=== PATIENT | male | born 1935 | race Caucasian/White ===

== ENCOUNTER 2020-04-06 12:07 | Outpatient (CLI) | payer MEDICARE, OTHER ==
[~2020-04-06 12:07] MED LIST: Magnevist 469MG/ML 20 ML VIAL ONE
--- NOTE | 2020-04-06 13:16 | RAD ---
EXAM: XR Lumbar Spine Min 4 View PROVIDED CLINICAL HISTORY: Low back pain, sciatica. COMPARISON: None FINDINGS: There are 5 nonrib-bearing lumbar-type vertebral bodies. Right convex scoliosis lumbar spine is prese nt. There is significant narrowing of the intervertebral disc spaces at the L3-4 and L4-5 levels and to a lesser extent the L5-S1 level. Multilevel osteophytes are present primarily involving the lo wer lumbar spine. Facet hypertrophic changes are seen in the lower lumbar spine. Grade 1 anterolisthesis of L3 on L4 is seen on flexion which mostly corrects on extension. There is trace gra de 1 anterolisthesis of L4 on L5 on flexion which does correct with extension. There is slight grade 1 anterolisthesis of L5 on S1, but this level is not well evaluated due to overlying osseous st ructures and the degenerative changes. There does not appear to be significant change in the degree of listhesis between flexion and extension views. No obvious fracture is appreciated. Vascular calcic is seen in the abdominal aorta and iliac arteries. IMPRESSION: Multilevel degenerative changes greatest involving the lower lumbar spine with grade 1 anterolisthesi s of L3 on L4, L4 on L5, and L5 on S1 with improvement in the degree of anterolisthesis between flexion and extension.
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
== END 2020-04-06 12:08 | disposition home or self-care (01) ==
LOC: BICMRI 12:07
PROVIDERS: ATTEND Surgery
DX: M54.40 Lumbago with sciatica, unspecified side (principal); M47.816 Spondylosis without myelopathy or radiculopathy, lumbar region; M43.16 Spondylolisthesis, lumbar region; M43.17 Spondylolisthesis, lumbosacral region; M48.061 Spinal stenosis, lumbar region without neurogenic claudication; M48.07 Spinal stenosis, lumbosacral region
CPT/HCPCS: 72110; 72158; 82565

== ENCOUNTER 2021-06-06 05:50 | Day surgery (SDC) | payer MEDICARE, OTHER ==
[2021-06-05 09:35] VITALS: BMI 26.6
[2021-06-06 07:58] LABS: Cardiac Risk 2.7 (Less than 4.5)
[2021-06-06] MEDS ORDERED: Lidocaine 1% (PF) 30 ML VIAL ONE (08:08)
[2021-06-06] MEDS ORDERED: Midazolam HCl 2 mg/2 ml Vial ONE (08:10)
[2021-06-06] MEDS ORDERED: Fentanyl 100 MCG/2 ML VIAL ONE (08:10)
[2021-06-06] MEDS ORDERED: hydrALAZINE 20 MG/ML VIAL ONE (08:36)
[2021-06-06] MEDS ORDERED: Nitroglycerin 2% Ointment 1 INCH/1 GM Packet ONE (08:43)
[2021-06-06] MEDS ORDERED: Nitroglycerin 4.9 GM Bottle ONE (08:51)
== END 2021-06-06 15:35 | disposition home or self-care (01) ==
LOC: CCL 05:50
PROVIDERS: ATTEND Internal Medicine Cardiovascular Disease
PROC: 4A023N7 Measurement of Cardiac Sampling and Pressure, Left Heart, Percutaneous Approach (ICD-10-PCS; principal; 2021-06-06)
PROC: B2111ZZ Fluoroscopy of Multiple Coronary Arteries using Low Osmolar Contrast (ICD-10-PCS; 2021-06-06)
DX: I25.119 Atherosclerotic heart disease of native coronary artery with unspecified angina pectoris (principal); I10 Essential (primary) hypertension; E78.2 Mixed hyperlipidemia; E78.00 Pure hypercholesterolemia, unspecified; N40.0 Benign prostatic hyperplasia without lower urinary tract symptoms; K21.9 Gastro-esophageal reflux disease without esophagitis; Z86.16 Personal history of COVID-19; Z86.73 Personal history of transient ischemic attack (TIA), and cerebral infarction without residual deficits; Z79.82 Long term (current) use of aspirin; Z79.899 Other long term (current) drug therapy
CPT/HCPCS: 36415; 80061; 93454; 93458; 99152; J0360; J2001; J2250; J3010

== ENCOUNTER 2021-12-11 08:09 | Observation (INO) | payer MEDICARE, OTHER ==
[2021-12-05 10:12] VITALS: BMI 25.8
[2021-12-11] MEDS ORDERED: Tranexamic Acid 1,000 MG/10 ML VIAL ONE (09:50)
[2021-12-11] MEDS ORDERED: Vancomycin 1 GM/200 ML BAG ONE (09:50)
[2021-12-11] MEDS ORDERED: Sodium Chloride 0.9% 100 ML ONE (09:50)
[2021-12-11] MEDS ORDERED: Fentanyl 100 MCG/2 ML VIAL ONE ×5 (10:05→14:51)
[2021-12-11] MEDS ORDERED: Midazolam HCl 2 mg/2 ml Vial ONE (10:05)
[2021-12-11] MEDS ORDERED: Zolpidem Tartrate 5 MG TAB PO PRN ×2 (11:00→11:15)
[2021-12-11] MEDS ORDERED: HYDROcodone/Acetaminophen 10/325 mg Tablet PO PRN (11:00)
[2021-12-11] MEDS ORDERED: traMADol HCl 50 MG TAB PO PRN (11:00)
[2021-12-11] MEDS ORDERED: Ropivacaine 0.2% 550 ML 550 ML NERVE BLCK SCH (11:00)
[2021-12-11] MEDS ORDERED: Promethazine HCl 25 MG/ML VIAL IM PRN ×2 (11:00→11:15)
[2021-12-11] MEDS ORDERED: Ondansetron PF 4 MG/2 ML Vial IVP PRN ×2 (11:00→11:15)
[2021-12-11] MEDS ORDERED: ceFAZolin 2 GM/Dextrose 50 ML IVPB ONE (11:07)
[2021-12-11] MEDS ORDERED: Bupivacaine PF 0.5% 30 ML VIAL ONE (11:13)
[2021-12-11] MEDS ORDERED: Ondansetron PF 4 MG/2 ML Vial ONE ×2 (11:14→12:17)
[2021-12-11] MEDS ORDERED: Bupivacaine HCl 0.5%/Epinephrine 1:200,000/PF 30 ml Vial ONE (11:14)
[2021-12-11] MEDS ORDERED: ePHEDrine 50 MG/ML VIAL ONE (11:14)
[2021-12-11] MEDS ORDERED: Lidocaine 1% PF 5 ML VIAL ONE (11:14)
[2021-12-11] MEDS ORDERED: PROPOFOL 200 MG/20 ML VIAL ONE (11:14)
[2021-12-11] MEDS ORDERED: PHENYLEPHRINE-NS 100 MCG/ML 10 ML SYRINGE ONE (11:14)
[2021-12-11] MEDS ORDERED: Acetaminophen 325 MG TAB PO PRN (11:15)
[2021-12-11] MEDS ORDERED: diphenhydrAMINE 25 MG CAP PO PRN (11:15)
[2021-12-11] MEDS ORDERED: Nitroglycerin 0.4 MG TAB (25 Tab Bottle) SL PRN (11:17)
[2021-12-11] MEDS ORDERED: Cyanocobalamin 1000 MCG/ML VIAL IM SCH (11:30)
[2021-12-11] MEDS ORDERED: Ketorolac Tromethamine 30 MG/ML VIAL IVP SCH (12:00)
[2021-12-11] MEDS: Fentanyl 100 MCG/2 ML VIAL IV PRN (15:26)
[2021-12-11] MEDS: Sodium Chloride 0.9% 1,000 ML IV SCH ×2 (17:30→22:11)
[2021-12-11] MEDS ORDERED: ceFAZolin 2 GM/Dextrose 50 ML 2 GM in Premix Bag 1 BAG IVPB SCH (19:00)
[2021-12-11] MEDS: Ferrous Gluconate 324 MG TAB PO SCH (19:44)
[2021-12-11] MEDS: Senokot S 8.6-50 MG TAB PO SCH (19:44)
[2021-12-11] MEDS ORDERED: Cepastat Lozenges 1 LOZ PO PRN (20:05)
[2021-12-11] MEDS ORDERED: CEFAZOLIN 2 GM, Admixture Fee 1 EACH in Sodium Chloride 0.9% 100 ML IVPB SCH (20:30)
[2021-12-11] MEDS: Gabapentin 300 MG CAP PO SCH (20:58)
[2021-12-11] MEDS: Aspirin 325 MG TAB PO SCH (20:58)
[2021-12-11] MEDS: Ketorolac Tromethamine 30 MG/ML VIAL IVP SCH (20:59)
[2021-12-11] MEDS: traMADol HCl 50 MG TAB PO PRN (20:59)
[2021-12-11] MEDS ORDERED: Aspirin 81 mg Enteric Coated Tablet PO SCH (21:00)
[2021-12-11] MEDS: traMADol HCl 50 MG TAB PO SCH (21:00)
[2021-12-12] MEDS ORDERED: CEFAZOLIN 2 GM, Admixture Fee 1 EACH in Sodium Chloride 0.9% 100 ML IVPB SCH (04:00)
[2021-12-12] MEDS: Ketorolac Tromethamine 30 MG/ML VIAL IVP SCH ×2 (05:07→09:48)
[2021-12-12] MEDS: traMADol HCl 50 MG TAB PO PRN ×3 (05:13→19:29)
[2021-12-12 06:27] LABS: Mean Corpuscular HGB CONC 34.5 g/dL (32.0-36.0); Mean Corpuscular Hemoglobin 37.4 pg (27.0-31.0); Mean Platelet Volume 6.7 fL (7.4-10.4); Platelet Count 181 thou/uL (130-400); Red Blood Cell (RBC) Count 2.66 mill/uL (4.70-6.10); White Blood Cell (WBC) Count 6.7 thou/uL (4.8-10.8)
[2021-12-12] MEDS: Senokot S 8.6-50 MG TAB PO SCH ×2 (09:00→21:30)
[2021-12-12] MEDS: PARoxetine 20 MG TAB PO SCH (09:00)
[2021-12-12] MEDS: Multivitamin W/ Minerals 1 TAB PO SCH (10:01)
[2021-12-12] MEDS: Gabapentin 300 MG CAP PO SCH ×2 (10:01→21:31)
[2021-12-12] MEDS: Ferrous Gluconate 324 MG TAB PO SCH ×2 (10:01→22:09)
[2021-12-12] MEDS: Lisinopril 20 MG TAB PO SCH (10:02)
[2021-12-12] MEDS: Hydrochlorothiazide 25 MG TAB PO SCH (10:03)
[2021-12-12] MEDS: HYDROcodone/Acetaminophen 10/325 mg Tablet PO PRN (10:07)
[2021-12-12] MEDS: traMADol HCl 50 MG TAB PO SCH ×2 (10:09→21:31)
[2021-12-12] MEDS: Sodium Chloride 0.9% 1,000 ML IV SCH ×2 (10:12→18:56)
[2021-12-12] MEDS ORDERED: Tamsulosin HCl 0.4 MG CAP PO SCH ×2 (11:45→18:30)
[2021-12-12] MEDS: Fentanyl 100 MCG/2 ML VIAL IV PRN (16:04)
[2021-12-12] MEDS: Aspirin 325 MG TAB PO SCH (21:31)
[2021-12-13] MEDS: Sodium Chloride 0.9% 1,000 ML IV SCH ×2 (03:05→13:57)
[2021-12-13] MEDS: traMADol HCl 50 MG TAB PO PRN (04:19)
[2021-12-13] MEDS: Gabapentin 300 MG CAP PO SCH (09:09)
[2021-12-13] MEDS: Multivitamin W/ Minerals 1 TAB PO SCH (09:10)
[2021-12-13] MEDS: Senokot S 8.6-50 MG TAB PO SCH (09:11)
[2021-12-13] MEDS: Lisinopril 20 MG TAB PO SCH (09:14)
[2021-12-13] MEDS: PARoxetine 20 MG TAB PO SCH (09:15)
[2021-12-13] MEDS: Ferrous Gluconate 324 MG TAB PO SCH (09:16)
[2021-12-13] MEDS: Hydrochlorothiazide 25 MG TAB PO SCH (09:17)
[2021-12-13] MEDS: traMADol HCl 50 MG TAB PO SCH (09:26)
[2021-12-13 11:36] VITALS: BP 123/68; TEMP 99
[2021-12-13] MEDS: HYDROcodone/Acetaminophen 10/325 mg Tablet PO PRN (13:42)
== END 2021-12-13 14:06 | disposition home or self-care (01) ==
LOC: SDC 08:09 → SURG B 14:20
PROVIDERS: ADMIT Orthopaedic Surgery; ATTEND Orthopaedic Surgery
PROC: 0SRC0J9 Replacement of Right Knee Joint with Synthetic Substitute, Cemented, Open Approach (ICD-10-PCS; principal; 2021-12-11)
PROC: 8E0YXBZ Computer Assisted Procedure of Lower Extremity (ICD-10-PCS; 2021-12-11)
PROC: 3E0T3BZ Introduction of Anesthetic Agent into Peripheral Nerves and Plexi, Percutaneous Approach (ICD-10-PCS; 2021-12-11)
DX: M17.11 Unilateral primary osteoarthritis, right knee (principal); I10 Essential (primary) hypertension; Z79.82 Long term (current) use of aspirin; Z79.899 Other long term (current) drug therapy; Z88.6 Allergy status to analgesic agent; Z96.612 Presence of left artificial shoulder joint
CPT/HCPCS: 20985; 27447; 64448; 73560; 85027; 87081; 93005; 97110 ×2; 97116; 97139 ×4; 97530 ×3; A4306; C1713; C1776; 36415; 93010; 96374; 96375; 96376; G0378; J0690; J1885; J2250; J2405; J2704; J2795; J3010; J3370; J3490; J7050; S0020

== ENCOUNTER 2022-08-28 08:11 | Outpatient (CLI) | payer MEDICARE, OTHER ==
[2022-08-28] MEDS ORDERED: Iopamidol-370 76% 500 ML 1 ML ONE (09:39)
== END 2022-08-28 08:12 | disposition home or self-care (01) ==
LOC: BICCT 08:11
PROVIDERS: ATTEND Internal Medicine Hematology & Oncology
DX: C25.2 Malignant neoplasm of tail of pancreas (principal); K86.89 Other specified diseases of pancreas; I82.890 Acute embolism and thrombosis of other specified veins; I70.8 Atherosclerosis of other arteries; K59.00 Constipation, unspecified; N32.89 Other specified disorders of bladder; R18.8 Other ascites; I70.90 Unspecified atherosclerosis; N40.0 Benign prostatic hyperplasia without lower urinary tract symptoms; K76.9 Liver disease, unspecified
CPT/HCPCS: 71260; 74178; Q9967

== ENCOUNTER 2022-08-30 10:31 | Outpatient (CLI) | payer MEDICARE, OTHER ==
[2022-08-30 11:52] LABS: #Monocytes 0.6 10x3/uL (0.0-1.1); %Lymphocytes 4.2 % (18.0-47.0); %Monocytes 5.2 % (0.0-10.0); Hemoglobin 11.1 g/dL (13.5-17.5); Mean Corpuscular HGB CONC 35.7 g/dL (32.0-36.0); Mean Corpuscular Hemoglobin 35.8 pg (27.0-33.0); Mean Corpuscular Volume 100.3 fl (81.2-95.1); Mean Platelet Volume 9.4 fl (7.4-10.4); Platelet Count 309 10x3/uL (150-450); RBC Distribution Width 12.1 % (11.5-14.5); White Blood Cell (WBC) Count 12.2 10x3/uL (3.5-10.5)
[2022-08-30 12:01] LABS: Anion Gap 17 mmol/L (10-20); BUN (Urea Nitrogen) 23 mg/dL (8.4-25.7); Calc. Creatinine Clearance 0 mL/min (70-130); Calcium 9.1 mg/dL (7.8-10.44); Carbon Dioxide 23 mmol/L (23-31); Chloride 97 mmol/L (98-107); Estimated GFR 70; Glucose 104 mg/dL (83-110); Potassium 5.5 mmol/L (3.5-5.1); Sodium 131 mmol/L (136-145)
== END 2022-08-30 10:32 | disposition home or self-care (01) ==
LOC: LABBT 10:31
PROVIDERS: ATTEND Specialist
DX: Z01.818 Encounter for other preprocedural examination (principal); C25.9 Malignant neoplasm of pancreas, unspecified
CPT/HCPCS: 80048; 85025; 93005; 93010

== ENCOUNTER 2022-09-06 09:49 | Day surgery (SDC) | payer MEDICARE, OTHER ==
[2022-09-04 13:59] VITALS: BMI 24.0
[2022-09-06] MEDS ORDERED: Acetaminophen 500 MG TAB ONE (10:14)
[2022-09-06] MEDS ORDERED: Ketorolac Tromethamine 30 MG/ML VIAL ONE (10:55)
[2022-09-06] MEDS ORDERED: Sodium Chloride 0.9% 100 ML ONE (11:07)
[2022-09-06] MEDS ORDERED: CEFAZOLIN 2 GM VIAL ONE (11:07)
[2022-09-06] MEDS ORDERED: Lidocaine 1% (PF) 30 ML VIAL ONE (11:31)
[2022-09-06] MEDS ORDERED: Bupivacaine/Epinephrine 0.25% 30 ML VIAL ONE (11:31)
[2022-09-06] MEDS ORDERED: fentaNYL PF 100 MCG/2 ML SYRINGE ONE (11:36)
[2022-09-06] MEDS ORDERED: PROPOFOL 40 ML ONE (11:38)
[2022-09-06] MEDS ORDERED: PROPOFOL 200 MG/20 ML VIAL ONE (11:58)
[2022-09-06] MEDS ORDERED: ePHEDrine 50 MG/ML VIAL ONE (11:58)
== END 2022-09-06 13:30 | disposition home or self-care (01) ==
LOC: SDC 09:49
PROVIDERS: ATTEND Specialist
PROC: 0JH60WZ Insertion of Totally Implantable Vascular Access Device into Chest Subcutaneous Tissue and Fascia, Open Approach (ICD-10-PCS; principal; 2022-09-06)
PROC: 02HV33Z Insertion of Infusion Device into Superior Vena Cava, Percutaneous Approach (ICD-10-PCS; 2022-09-06)
DX: C25.9 Malignant neoplasm of pancreas, unspecified (principal); I10 Essential (primary) hypertension; M19.90 Unspecified osteoarthritis, unspecified site; E78.00 Pure hypercholesterolemia, unspecified; Z85.46 Personal history of malignant neoplasm of prostate; Z86.73 Personal history of transient ischemic attack (TIA), and cerebral infarction without residual deficits; Z79.82 Long term (current) use of aspirin; Z79.899 Other long term (current) drug therapy; Z88.6 Allergy status to analgesic agent
CPT/HCPCS: 36561; 71045; 71046; C1788; J1642; J1885; J2001; J2704; J3490

== ENCOUNTER 2022-09-09 10:15 | Inpatient (IN) | payer MEDICARE, OTHER ==
[2022-09-09] MEDS ORDERED: Iopamidol-370 76% 500 ML 1 ML ONE (10:45)
[2022-09-09 10:55] LABS: Hemoglobin 9.4 g/dL (14.0-18.0); Mean Corpuscular HGB CONC 34.7 g/dL (32.0-36.0); Mean Corpuscular Hemoglobin 36.8 pg (27.0-31.0); Mean Platelet Volume 7.8 fL (7.4-10.4); Platelet Count 39 thou/uL (130-400); RBC Distribution Width 11.2 % (11.5-14.5); Red Blood Cell (RBC) Count 2.57 mill/uL (4.70-6.10); White Blood Cell (WBC) Count 0.2 thou/uL (4.8-10.8)
[2022-09-09 11:06] LABS: ALT (SGPT) 26 U/L (8-55); AST (SGOT) 29 U/L (5-34); Albumin 3.4 g/dL (3.4-4.8); Alkaline Phosphatase 95 U/L (40-110); Anion Gap 13 mmol/L (10-20); BUN (Urea Nitrogen) 25 mg/dL (8.4-25.7); Bilirubin, Total 1.4 mg/dL (0.2-1.2); Calc. Creatinine Clearance 0 mL/min (70-130); Calcium 8.6 mg/dL (7.8-10.44); Carbon Dioxide 22 mmol/L (23-31); Chloride 95 mmol/L (98-107); Estimated GFR 63; Globulin 2.6 g/dL (2.4-3.5); Glucose 110 mg/dL (83-110); Sodium 126 mmol/L (136-145)
[2022-09-09 11:25] LABS: MDiff Complete? YES; Platelet Morphology Comment Appears Decreased; Polychromasia SLIGHT = 2-3 cells (100X) (0-2/hpf)
[2022-09-09 11:43] LABS: CKMB 4.2 ng/mL (0-6.6)
[2022-09-09] MEDS ORDERED: Cefepime 2 GM VIAL ONE (12:54)
[2022-09-09] MEDS ORDERED: Vancomycin 1.5 GRAM/300 ML BAG 1.5 GM in Premix Bag 1 BAG IVPB SCH (13:15)
[2022-09-09] MEDS ORDERED: Guaifenesin DM 100-10/5 ML UDCUP PO PRN (13:16)
[2022-09-09 14:26] LABS: Troponin I 0.077 ng/mL (< 0.028)
[2022-09-09 16:54] LABS: Troponin I 0.068 ng/mL (< 0.028)
[2022-09-09 20:04] VITALS: BMI 25.2
[2022-09-09] MEDS: HYDROcodone/Acetaminophen 5/325 mg Tablet PO PRN (20:05)
[2022-09-09] MEDS: Sodium Chloride 0.9% 1,000 ML IV SCH (20:05)
[2022-09-09] MEDS: Melatonin 3 MG TAB PO PRN (20:30)
[2022-09-10] MEDS: Cefepime 2 GM in Sodium Chloride 0.9% 100 ML IVPB SCH ×2 (00:38→12:33)
[2022-09-10 01:52] LABS: Legionella Urinary Ag Negative (Negative)
[2022-09-10 02:10] LABS: Strep pneumo Urine Ag NEGATIVE (NEGATIVE)
[2022-09-10] MEDS: HYDROcodone/Acetaminophen 5/325 mg Tablet PO PRN ×3 (04:21→15:07)
[2022-09-10 07:21] LABS: Hemoglobin 7.5 g/dL (14.0-18.0); Mean Corpuscular HGB CONC 33.6 g/dL (32.0-36.0); Mean Corpuscular Hemoglobin 36.1 pg (27.0-31.0); Mean Platelet Volume 8.1 fL (7.4-10.4); Platelet Count 13 thou/uL (130-400); RBC Distribution Width 11.2 % (11.5-14.5); Red Blood Cell (RBC) Count 2.06 mill/uL (4.70-6.10); White Blood Cell (WBC) Count 0.4 thou/uL (4.8-10.8)
[2022-09-10 07:40] LABS: Anion Gap 10 mmol/L (10-20); BUN (Urea Nitrogen) 24 mg/dL (8.4-25.7); Calc. Creatinine Clearance 63 mL/min (70-130); Calcium 7.9 mg/dL (7.8-10.44); Carbon Dioxide 21 mmol/L (23-31); Chloride 97 mmol/L (98-107); Estimated GFR 84; Glucose 108 mg/dL (83-110); Potassium 4.4 mmol/L (3.5-5.1); Sodium 124 mmol/L (136-145)
[2022-09-10 08:24] LABS: MDiff Complete? YES; Macrocytosis MODERATE=16-30 cells (100X) (0-5/hpf); Ovalocytes SLIGHT = 2-5 cells (100X) (0-1/hpf); Platelet Morphology Comment Appears Decreased
[2022-09-10] MEDS: PARoxetine 20 MG TAB PO SCH (08:26)
[2022-09-10] MEDS: Lisinopril 20 MG TAB PO SCH (08:26)
[2022-09-10] MEDS: Sodium Chloride 0.9% 1,000 ML IV SCH ×2 (08:27→17:42)
[2022-09-10] MEDS: Gabapentin 300 MG CAP PO SCH ×2 (08:27→20:49)
[2022-09-10] MEDS: Famotidine 20 MG TAB PO SCH (08:27)
[2022-09-10] MEDS: fentaNYL 50 mcg/hour Patch TD SCH (08:30)
[2022-09-10] MEDS ORDERED: Enoxaparin Sodium 40 MG/0.4 ML SYRINGE SC SCH (09:00)
[2022-09-10] MEDS: Vancomycin 1 GM in Premix Bag 1 BAG IVPB SCH (14:19)
[2022-09-10] MEDS: Pantoprazole 40 MG VIAL IVP SCH (17:42)
[2022-09-11] MEDS: Sodium Chloride 0.9% 1,000 ML IV SCH ×2 (00:23→17:58)
[2022-09-11] MEDS: Cefepime 2 GM in Sodium Chloride 0.9% 100 ML IVPB SCH ×2 (00:23→13:32)
[2022-09-11] MEDS: Pantoprazole 40 MG VIAL IVP SCH ×2 (04:08→17:58)
[2022-09-11 06:16] LABS: Hemoglobin 8.6 g/dL (14.0-18.0); Mean Corpuscular HGB CONC 33.8 g/dL (32.0-36.0); Mean Corpuscular Hemoglobin 36.8 pg (27.0-31.0); Mean Platelet Volume 8.3 fL (7.4-10.4); Platelet Count 44 10x3/uL (130-400); RBC Distribution Width 11.2 % (11.5-14.5); Red Blood Cell (RBC) Count 2.32 mill/uL (4.70-6.10); White Blood Cell (WBC) Count 0.9 10x3/uL (4.8-10.8)
[2022-09-11 06:24] LABS: Anion Gap 12 mmol/L (10-20); BUN (Urea Nitrogen) 22 mg/dL (8.4-25.7); Calc. Creatinine Clearance 63 mL/min (70-130); Calcium 8.2 mg/dL (7.8-10.44); Carbon Dioxide 19 mmol/L (23-31); Chloride 100 mmol/L (98-107); Estimated GFR 84; Glucose 100 mg/dL (83-110); Sodium 127 mmol/L (136-145)
[2022-09-11] MEDS: Lisinopril 20 MG TAB PO SCH (08:41)
[2022-09-11] MEDS: PARoxetine 20 MG TAB PO SCH (08:42)
[2022-09-11] MEDS: Famotidine 20 MG TAB PO SCH (08:43)
[2022-09-11] MEDS: Gabapentin 300 MG CAP PO SCH ×2 (08:44→20:34)
[2022-09-11 08:55] LABS: Band 20 % (5-11); Lymphocytes 60 % (21-51); MDiff Complete? YES; Macrocytosis SLIGHT = 6-15 cells (100X) (0-5/hpf); Neutrophil 20 % (42-75); Platelet Morphology Comment Appears Decreased; Polychromasia SLIGHT = 2-3 cells (100X) (0-2/hpf)
[2022-09-11] MEDS ORDERED: Amiodarone 150 MG in Dextrose 5% in Water 100 ML IVPB SCH (13:00)
[2022-09-11] MEDS ORDERED: Amiodarone 450 MG in Dextrose 5% in Water 250 ML IVPB SCH (13:15)
[2022-09-11 13:54] LABS: Vancomycin, Trough 9.8 ug/mL
[2022-09-11] MEDS: Vancomycin 1 GM in Premix Bag 1 BAG IVPB SCH (14:26)
[2022-09-11] MEDS: Vancomycin HCl 750 MG in Sodium Chloride 0.9% 250 ML 250 ML IVPB SCH (15:01)
[2022-09-11] MEDS: HYDROcodone/Acetaminophen 5/325 mg Tablet PO PRN (19:11)
[2022-09-11] MEDS: Amiodarone 200 MG TAB PO SCH (20:34)
[2022-09-11] MEDS: Melatonin 3 MG TAB PO PRN (20:35)
[2022-09-12] MEDS: Cefepime 2 GM in Sodium Chloride 0.9% 100 ML IVPB SCH ×2 (01:17→12:22)
[2022-09-12] MEDS: Sodium Chloride 0.9% 1,000 ML IV SCH ×2 (03:04→20:15)
[2022-09-12] MEDS: Vancomycin HCl 750 MG in Sodium Chloride 0.9% 250 ML 250 ML IVPB SCH ×2 (03:04→14:32)
[2022-09-12] MEDS: HYDROcodone/Acetaminophen 5/325 mg Tablet PO PRN ×3 (03:12→20:20)
[2022-09-12 05:28] LABS: Hemoglobin 7.6 g/dL (14.0-18.0); Mean Corpuscular HGB CONC 33.6 g/dL (32.0-36.0); Mean Corpuscular Hemoglobin 36.1 pg (27.0-31.0); Mean Platelet Volume 8.8 fL (7.4-10.4); Platelet Count 26 10x3/uL (130-400); RBC Distribution Width 11.4 % (11.5-14.5); Red Blood Cell (RBC) Count 2.11 mill/uL (4.70-6.10); White Blood Cell (WBC) Count 0.7 10x3/uL (4.8-10.8)
[2022-09-12] MEDS: Pantoprazole 40 MG VIAL IVP SCH ×2 (05:38→16:49)
[2022-09-12 05:49] LABS: Anion Gap 12 mmol/L (10-20); BUN (Urea Nitrogen) 23 mg/dL (8.4-25.7); Calc. Creatinine Clearance 66 mL/min (70-130); Carbon Dioxide 17 mmol/L (23-31); Chloride 103 mmol/L (98-107); Estimated GFR 85; Glucose 105 mg/dL (83-110); Potassium 4.1 mmol/L (3.5-5.1); Sodium 128 mmol/L (136-145)
[2022-09-12] MEDS: Famotidine 20 MG TAB PO SCH (08:28)
[2022-09-12] MEDS: Amiodarone 200 MG TAB PO SCH ×2 (08:29→20:19)
[2022-09-12] MEDS: PARoxetine 20 MG TAB PO SCH (08:30)
[2022-09-12] MEDS ORDERED: Promethazine HCl 12.5 MG in Sodium Chloride 0.9% 50 ML IVPB PRN (09:52)
[2022-09-12] MEDS: Lisinopril 20 MG TAB PO SCH (10:04)
[2022-09-12] MEDS: Gabapentin 300 MG CAP PO SCH ×2 (11:29→20:20)
[2022-09-12] MEDS ORDERED: Bisacodyl 10 MG SUPP PR PRN (15:33)
[2022-09-12] MEDS ORDERED: Bisacodyl 10 MG SUPP PR SCH (17:00)
[2022-09-12] MEDS: Docusate 100 MG CAP PO SCH (20:19)
[2022-09-12] MEDS: Melatonin 3 MG TAB PO PRN (20:20)
[2022-09-13] MEDS ORDERED: Digoxin 0.5 MG/2 ML AMP SLOW IVP SCH (01:00)
[2022-09-13] MEDS ORDERED: Sodium Chloride 0.9% 250 ML 250 ML IVPB SCH (02:15)
[2022-09-13] MEDS: Cefepime 2 GM in Sodium Chloride 0.9% 100 ML IVPB SCH ×2 (02:18→13:11)
[2022-09-13 02:48] LABS: Vancomycin, Trough 15.5 ug/mL
[2022-09-13] MEDS: Vancomycin HCl 750 MG in Sodium Chloride 0.9% 250 ML 250 ML IVPB SCH ×2 (03:37→14:51)
[2022-09-13] MEDS: Pantoprazole 40 MG VIAL IVP SCH ×2 (06:05→16:52)
[2022-09-13 08:36] LABS: Hemoglobin 7.9 g/dL (14.0-18.0); Mean Corpuscular HGB CONC 33.6 g/dL (32.0-36.0); Mean Corpuscular Hemoglobin 36.4 pg (27.0-31.0); Mean Platelet Volume 9.4 fL (7.4-10.4); Platelet Count 30 10x3/uL (130-400); RBC Distribution Width 11.4 % (11.5-14.5); Red Blood Cell (RBC) Count 2.18 mill/uL (4.70-6.10); White Blood Cell (WBC) Count 2.1 10x3/uL (4.8-10.8)
[2022-09-13 08:47] LABS: Anion Gap 12 mmol/L (10-20); BUN (Urea Nitrogen) 19 mg/dL (8.4-25.7); Calc. Creatinine Clearance 72 mL/min (70-130); Calcium 7.7 mg/dL (7.8-10.44); Carbon Dioxide 16 mmol/L (23-31); Chloride 106 mmol/L (98-107); Estimated GFR 88; Glucose 92 mg/dL (83-110); Potassium 3.8 mmol/L (3.5-5.1); Sodium 130 mmol/L (136-145)
[2022-09-13] MEDS: Sodium Chloride 0.9% 1,000 ML IV SCH (09:07)
[2022-09-13] MEDS: fentaNYL 50 mcg/hour Patch TD SCH (09:09)
[2022-09-13] MEDS: PARoxetine 20 MG TAB PO SCH (09:12)
[2022-09-13] MEDS: Docusate 100 MG CAP PO SCH ×2 (09:12→23:58)
[2022-09-13] MEDS: Famotidine 20 MG TAB PO SCH ×2 (09:13→23:58)
[2022-09-13] MEDS: Amiodarone 200 MG TAB PO SCH ×3 (09:13→23:58)
[2022-09-13] MEDS: Gabapentin 300 MG CAP PO SCH ×2 (09:13→23:59)
[2022-09-13 09:18] LABS: Band 18 % (5-11); Eosinophils 2 % (0-10); Lymphocytes 26 % (21-51); MDiff Complete? YES; Macrocytosis SLIGHT = 6-15 cells (100X) (0-5/hpf); Monocytes 22 % (0-10); Neutrophil 32 % (42-75); Platelet Morphology Comment Appears Decreased; Polychromasia SLIGHT = 2-3 cells (100X) (0-2/hpf)
[2022-09-13] MEDS ORDERED: Ketorolac Tromethamine 30 MG/ML VIAL IVP SCH (21:00)
[2022-09-14] MEDS: Sodium Chloride 0.9% 1,000 ML IV SCH (01:16)
[2022-09-14] MEDS: Cefepime 2 GM in Sodium Chloride 0.9% 100 ML IVPB SCH ×2 (01:17→13:23)
[2022-09-14] MEDS: Vancomycin HCl 750 MG in Sodium Chloride 0.9% 250 ML 250 ML IVPB SCH ×2 (03:30→15:46)
[2022-09-14] MEDS: Pantoprazole 40 MG VIAL IVP SCH (05:47)
[2022-09-14 06:45] LABS: Anion Gap 9 mmol/L (10-20); BUN (Urea Nitrogen) 15 mg/dL (8.4-25.7); Calc. Creatinine Clearance 74 mL/min (70-130); Calcium 7.8 mg/dL (7.8-10.44); Carbon Dioxide 19 mmol/L (23-31); Chloride 108 mmol/L (98-107); Estimated GFR 88; Glucose 83 mg/dL (83-110); Potassium 3.6 mmol/L (3.5-5.1); Sodium 132 mmol/L (136-145)
[2022-09-14 06:56] LABS: Band 21 % (5-11); Burr Cells SLIGHT = 2-5 cells (100X) (0-1/hpf); Eosinophils 3 % (0-10); Lymphocytes 11 % (21-51); MDiff Complete? YES; Macrocytosis SLIGHT = 6-15 cells (100X) (0-5/hpf); Monocytes 15 % (0-10); Neutrophil 48 % (42-75); Ovalocytes SLIGHT = 2-5 cells (100X) (0-1/hpf); Platelet Morphology Comment Appears Decreased; Reactive Lymphocytes 2 % (0-10)
[2022-09-14 06:57] LABS: Hemoglobin 9.9 g/dL (14.0-18.0); Mean Corpuscular HGB CONC 31.9 g/dL (32.0-36.0); Mean Corpuscular Hemoglobin 34.5 pg (27.0-31.0); Mean Platelet Volume 10.8 fL (7.4-10.4); Platelet Count 32 10x3/uL (130-400); RBC Distribution Width 11.6 % (11.5-14.5); Red Blood Cell (RBC) Count 2.87 mill/uL (4.70-6.10); White Blood Cell (WBC) Count 5.7 10x3/uL (4.8-10.8)
[2022-09-14] MEDS: PARoxetine 20 MG TAB PO SCH (09:26)
[2022-09-14] MEDS: Docusate 100 MG CAP PO SCH ×2 (09:30→22:27)
[2022-09-14] MEDS: Amiodarone 200 MG TAB PO SCH ×3 (09:31→22:27)
[2022-09-14] MEDS: Gabapentin 300 MG CAP PO SCH ×2 (09:31→22:26)
[2022-09-14] MEDS: Famotidine 20 MG TAB PO SCH (12:07)
[2022-09-14] MEDS ORDERED: Ondansetron PF 4 MG/2 ML Vial IVP PRN (13:27)
[2022-09-14 15:13] LABS: Vancomycin, Trough 17.5 ug/mL
[2022-09-14] MEDS: Melatonin 3 MG TAB PO PRN (22:28)
[2022-09-15] MEDS: Cefepime 1 GM in Sodium Chloride 0.9% 100 ML IVPB SCH ×2 (01:29→12:58)
[2022-09-15] MEDS: Sodium Chloride 0.9% 1,000 ML IV SCH ×2 (03:07→17:11)
[2022-09-15] MEDS: Vancomycin HCl 750 MG in Sodium Chloride 0.9% 250 ML 250 ML IVPB SCH ×2 (05:00→15:51)
[2022-09-15 07:26] LABS: Anion Gap 10 mmol/L (10-20); BUN (Urea Nitrogen) 11 mg/dL (8.4-25.7); Calc. Creatinine Clearance 77 mL/min (70-130); Calcium 8.2 mg/dL (7.8-10.44); Carbon Dioxide 21 mmol/L (23-31); Chloride 106 mmol/L (98-107); Estimated GFR 90; Glucose 114 mg/dL (83-110); Potassium 3.6 mmol/L (3.5-5.1); Sodium 133 mmol/L (136-145)
[2022-09-15 09:01] LABS: Band 34 % (5-11); Eosinophils 3 % (0-10); Hemoglobin 9.6 g/dL (14.0-18.0); Lymphocytes 4 % (21-51); MDiff Complete? YES; Mean Platelet Volume 9.1 fL (7.4-10.4); Metamyelocyte 3 % (0-0); Monocytes 4 % (0-10); Neutrophil 50 % (42-75); Nucleated RBC 1 % (0); Platelet Count 89 10x3/uL (130-400); Platelet Morphology Comment Appears Decreased; RBC Distribution Width 11.9 % (11.5-14.5); RBC Morphology Normal; Reactive Lymphocytes 2 % (0-10)
[2022-09-15] MEDS: Amiodarone 200 MG TAB PO SCH ×3 (10:22→21:57)
[2022-09-15] MEDS: Gabapentin 300 MG CAP PO SCH ×2 (10:24→21:56)
[2022-09-15] MEDS: Docusate 100 MG CAP PO SCH ×2 (10:24→21:58)
[2022-09-15] MEDS: PARoxetine 20 MG TAB PO SCH (10:26)
[2022-09-15] MEDS: Melatonin 3 MG TAB PO PRN (21:56)
[2022-09-15] MEDS ORDERED: diphenhydrAMINE 25 MG CAP PO SCH (22:45)
[2022-09-16] MEDS: Cefepime 1 GM in Sodium Chloride 0.9% 100 ML IVPB SCH ×2 (01:40→13:57)
[2022-09-16 03:27] LABS: Carbon Dioxide 19 mmol/L (23-31)
[2022-09-16 03:37] LABS: Band 20 % (5-11); Burr Cells SLIGHT = 2-5 cells (100X) (0-1/hpf); Eosinophils 1 % (0-10); Hemoglobin 8.2 g/dL (14.0-18.0); Large Platelets SLIGHT; Lymphocytes 4 % (21-51); MDiff Complete? YES; Macrocytosis MODERATE=16-30 cells (100X) (0-5/hpf); Mean Corpuscular HGB CONC 33.2 g/dL (32.0-36.0); Mean Corpuscular Hemoglobin 35.6 pg (27.0-31.0); Mean Platelet Volume 8.2 fL (7.4-10.4); Metamyelocyte 1 % (0-0); Monocytes 9 % (0-10); Myelocyte 3 % (0-0); Neutrophil 62 % (42-75); Ovalocytes SLIGHT = 2-5 cells (100X) (0-1/hpf); Platelet Count 111 10x3/uL (130-400); Platelet Morphology Comment Appears Decreased; RBC Distribution Width 11.8 % (11.5-14.5); Red Blood Cell (RBC) Count 2.31 mill/uL (4.70-6.10); White Blood Cell (WBC) Count 26.7 10x3/uL (4.8-10.8)
[2022-09-16 03:40] LABS: Calcium 7.9 mg/dL (7.8-10.44); Chloride 106 mmol/L (98-107); Potassium 3.7 mmol/L (3.5-5.1); Sodium 134 mmol/L (136-145)
[2022-09-16 03:41] LABS: Glucose 113 mg/dL (83-110)
[2022-09-16 03:42] LABS: Anion Gap 10 mmol/L (10-20)
[2022-09-16 03:43] LABS: Vancomycin, Trough 19.4 ug/mL
[2022-09-16 03:44] LABS: Calc. Creatinine Clearance 80 mL/min (70-130); Estimated GFR 90
[2022-09-16 03:45] LABS: BUN (Urea Nitrogen) 8 mg/dL (8.4-25.7)
[2022-09-16] MEDS: Vancomycin HCl 750 MG in Sodium Chloride 0.9% 250 ML 250 ML IVPB SCH ×2 (04:50→16:10)
[2022-09-16] MEDS: Docusate 100 MG CAP PO SCH ×2 (10:15→20:13)
[2022-09-16] MEDS: Amiodarone 200 MG TAB PO SCH ×3 (10:15→20:13)
[2022-09-16] MEDS: fentaNYL 50 mcg/hour Patch TD SCH (10:16)
[2022-09-16] MEDS: PARoxetine 20 MG TAB PO SCH (10:17)
[2022-09-16] MEDS: Gabapentin 300 MG CAP PO SCH ×2 (10:17→20:13)
[2022-09-16] MEDS ORDERED: Mineral Oil ENEMA PR SCH (16:00)
[2022-09-16] MEDS: Melatonin 3 MG TAB PO PRN (20:14)
[2022-09-17] MEDS: Cefepime 1 GM in Sodium Chloride 0.9% 100 ML IVPB SCH (02:56)
[2022-09-17 05:13] LABS: Hemoglobin 8.3 g/dL (14.0-18.0); Mean Corpuscular HGB CONC 33.2 g/dL (32.0-36.0); Mean Corpuscular Hemoglobin 35.5 pg (27.0-31.0); Mean Platelet Volume 8.5 fL (7.4-10.4); Platelet Count 164 10x3/uL (130-400); RBC Distribution Width 12.1 % (11.5-14.5); Red Blood Cell (RBC) Count 2.34 mill/uL (4.70-6.10); White Blood Cell (WBC) Count 18.2 10x3/uL (4.8-10.8)
[2022-09-17 05:25] LABS: Anion Gap 13 mmol/L (10-20); BUN (Urea Nitrogen) 7 mg/dL (8.4-25.7); Calc. Creatinine Clearance 81 mL/min (70-130); Calcium 7.9 mg/dL (7.8-10.44); Carbon Dioxide 20 mmol/L (23-31); Chloride 104 mmol/L (98-107); Estimated GFR 91; Glucose 101 mg/dL (83-110); Potassium 3.6 mmol/L (3.5-5.1); Sodium 133 mmol/L (136-145)
[2022-09-17] MEDS: Vancomycin HCl 750 MG in Sodium Chloride 0.9% 250 ML 250 ML IVPB SCH (05:35)
[2022-09-17 05:46] LABS: Band 13 % (5-11); Hypochromia SLIGHT = 6-15 cells (100X) (0-5/hpf); Lymphocytes 8 % (21-51); Monocytes 20 % (0-10); Neutrophil 59 % (42-75); Platelet Morphology Comment Appears Adequate
[2022-09-17 05:49] LABS: MDiff Complete? YES
[2022-09-17 07:59] VITALS: TEMP 97.9
[2022-09-17] MEDS ORDERED: Amiodarone 200 MG TAB PO SCH (09:00)
[2022-09-17] MEDS: PARoxetine 20 MG TAB PO SCH (10:23)
[2022-09-17] MEDS: Gabapentin 300 MG CAP PO SCH (10:24)
[2022-09-17] MEDS: Docusate 100 MG CAP PO SCH (10:24)
[2022-09-17 10:43] VITALS: BP 142/67
== END 2022-09-17 14:00 | disposition swing bed (61) | DRG 871 ==
LOC: ERS 10:15 → ERHOLD 13:21 → NEURO 16:50 → 2NO 09-16 18:51
PROVIDERS: ADMIT Family Medicine; ATTEND Family Medicine
PROC: 3E03329 Introduction of Other Anti-infective into Peripheral Vein, Percutaneous Approach (ICD-10-PCS; principal; 2022-09-09)
PROC: 6A550Z2 Pheresis of Platelets, Single (ICD-10-PCS; 2022-09-10)
DX: A41.9 Sepsis, unspecified organism (principal); Z66 Do not resuscitate; Z20.822 Contact with and (suspected) exposure to COVID-19; I21.A1 Myocardial infarction type 2; J96.01 Acute respiratory failure with hypoxia; J18.9 Pneumonia, unspecified organism; C25.9 Malignant neoplasm of pancreas, unspecified; E87.1 Hypo-osmolality and hyponatremia; I48.92 Unspecified atrial flutter; G93.49 Other encephalopathy; D61.818 Other pancytopenia; I48.19 Other persistent atrial fibrillation; I10 Essential (primary) hypertension; K59.00 Constipation, unspecified; Z96.612 Presence of left artificial shoulder joint; Z96.611 Presence of right artificial shoulder joint; Z96.653 Presence of artificial knee joint, bilateral; D70.3 Neutropenia due to infection; E86.9 Volume depletion, unspecified; F41.9 Anxiety disorder, unspecified; F32.A Depression, unspecified; N40.0 Benign prostatic hyperplasia without lower urinary tract symptoms; K21.9 Gastro-esophageal reflux disease without esophagitis; E78.5 Hyperlipidemia, unspecified; Y95 Nosocomial condition; G43.909 Migraine, unspecified, not intractable, without status migrainosus; Z98.890 Other specified postprocedural states; Z80.0 Family history of malignant neoplasm of digestive organs; Z86.73 Personal history of transient ischemic attack (TIA), and cerebral infarction without residual deficits; Z87.891 Personal history of nicotine dependence; Z88.6 Allergy status to analgesic agent; Z79.899 Other long term (current) drug therapy; Z79.82 Long term (current) use of aspirin
CPT/HCPCS: 36415; 36430; 70450; 71045; 71275; 74018; 74177; 80048; 80053; 80202; 82274; 82553; 83605; 83735; 83880; 83930; 83935; 84145; 84300; 84443; 84484; 85025; 86140; 86850; 86900; 86901; 87070; 87205; 87449; 87811; 87899; 93005; 96361; 96365; 96366; 96367; C9113; J0692; J1160; J1447; J1956; J2405; J2550; J3370; J3490; J7050; P9035; Q9967; U0003; U0005

== ENCOUNTER 2022-10-04 15:09 | Emergency (ER) | payer MEDICARE, OTHER ==
[2022-10-04 15:48] LABS: Bilirubin Negative (Negative); Blood, Urine Negative (Negative); Clarity Clear (Clear); Glucose, Urine (Dipstick) Normal (Negative); Ketone, Urine Negative (Negative); Leukocyte Negative Leu/uL (Negative); Nitrite Negative (Negative); Protein, Urine (Dipstick) 10 mg/dL (Neg-Trace); Urobilinogen Normal mg/dL (Less than 2); pH, Urine 6.5 (5.0-9.0)
[2022-10-04 16:25] LABS: #Lymphocytes 0.7 thou/uL (1.20-3.40); #Monocytes 0.4 thou/uL (0.11-0.59); #Neutrophils 4.8 thou/uL (1.40-6.50); %Basophils 0.1 % (0.0-1.0); %Eosinophils 0.2 % (0.0-10.0); %Lymphocytes 11.9 % (21.0-51.0); %Monocytes 6.5 % (0.0-10.0); %Neutrophils 81.4 % (42.0-75.0); Hemoglobin 9.9 g/dL (14.0-18.0); Mean Corpuscular HGB CONC 33.8 g/dL (32.0-36.0); Mean Corpuscular Hemoglobin 37.8 pg (27.0-31.0); Mean Platelet Volume 7.5 fL (7.4-10.4); Platelet Count 288 10x3/uL (130-400); RBC Distribution Width 14.8 % (11.5-14.5); Red Blood Cell (RBC) Count 2.61 mill/uL (4.70-6.10); White Blood Cell (WBC) Count 5.8 10x3/uL (4.8-10.8)
[2022-10-04 16:42] LABS: PTT 31.3 sec (22.9-36.1); Prothrombin Time 13.9 sec (12.0-14.7)
[2022-10-04 17:11] LABS: Albumin 3.6 g/dL (3.4-4.8)
[2022-10-04 17:12] LABS: Calcium 8.3 mg/dL (7.8-10.44); Chloride 99 mmol/L (98-107); Potassium 4.6 mmol/L (3.5-5.1); Sodium 129 mmol/L (136-145)
[2022-10-04 17:13] LABS: Globulin 2.4 g/dL (2.4-3.5); Glucose 118 mg/dL (83-110)
[2022-10-04 17:15] LABS: Anion Gap 14 mmol/L (10-20); Bilirubin, Total 0.5 mg/dL (0.2-1.2); Carbon Dioxide 21 mmol/L (23-31)
[2022-10-04 17:16] LABS: Alkaline Phosphatase 88 U/L (40-110); Calc. Creatinine Clearance 0 mL/min (70-130); Estimated GFR 87
[2022-10-04 17:17] LABS: BUN (Urea Nitrogen) 16 mg/dL (8.4-25.7)
[2022-10-04 17:18] LABS: AST (SGOT) 25 U/L (5-34)
[2022-10-04 17:19] LABS: ALT (SGPT) 15 U/L (8-55)
== END 2022-10-04 18:08 | disposition home or self-care (01) ==
LOC: ERS 15:09
DX: R31.9 Hematuria, unspecified (principal); E78.5 Hyperlipidemia, unspecified; I10 Essential (primary) hypertension; Z86.73 Personal history of transient ischemic attack (TIA), and cerebral infarction without residual deficits
CPT/HCPCS: 36415; 80053; 81003; 85025; 85610; 85730; 94760; 99283

== ENCOUNTER 2022-11-23 06:46 | Observation (INO) | payer MEDICARE, OTHER ==
[2022-11-23] MEDS ORDERED: Aspirin Chewable 81 MG TAB ONE (07:13)
[2022-11-23 07:58] LABS: Mean Corpuscular HGB CONC 33.6 g/dL (32.0-36.0); Mean Corpuscular Hemoglobin 38.8 pg (27.0-31.0); RBC Distribution Width 16.3 % (11.5-14.5); Red Blood Cell (RBC) Count 2.59 mill/uL (4.70-6.10)
[2022-11-23 08:08] LABS: ALT (SGPT) 13 U/L (8-55); AST (SGOT) 20 U/L (5-34); Albumin 3.7 g/dL (3.4-4.8); Alkaline Phosphatase 149 U/L (40-110); Anion Gap 14 mmol/L (10-20); BUN (Urea Nitrogen) 7 mg/dL (8.4-25.7); Bilirubin, Total 0.4 mg/dL (0.2-1.2); Calc. Creatinine Clearance 0 mL/min (70-130); Calcium 8.8 mg/dL (7.8-10.44); Carbon Dioxide 24 mmol/L (23-31); Chloride 99 mmol/L (98-107); Estimated GFR 85; Globulin 2.2 g/dL (2.4-3.5); Glucose 116 mg/dL (83-110); Potassium 4.1 mmol/L (3.5-5.1); Protein, Total 5.9 g/dL (5.8-8.1); Sodium 133 mmol/L (136-145)
[2022-11-23 08:28] LABS: Band 2 % (5-11); Eosinophils 1 % (0-10); Lymphocytes 3 % (21-51); MDiff Complete? YES; Mean Platelet Volume 8.1 fL (7.4-10.4); Monocytes 5 % (0-10); Neutrophil 88 % (42-75); Platelet Count 130 10x3/uL (130-400); Platelet Morphology Comment Appears Adequate; Vacuoles SLIGHT; White Blood Cell (WBC) Count 22.9 10x3/uL (4.8-10.8)
[2022-11-23] MEDS ORDERED: Cefepime 2 GM VIAL ONE (08:36)
[2022-11-23] MEDS ORDERED: Vancomycin 1 GM/200 ML (FROZEN) BAG ONE (09:13)
[2022-11-23 09:50] LABS: Bilirubin Negative (Negative); Blood, Urine Negative (Negative); Clarity Clear (Clear); Glucose, Urine (Dipstick) Normal (Negative); Ketone, Urine Negative (Negative); Leukocyte Negative Leu/uL (Negative); Nitrite Negative (Negative); Protein, Urine (Dipstick) Negative (Neg-Trace); Specific Gravity, Urine 1.026 (1.002-1.036); Urobilinogen Normal mg/dL (Less than 2); pH, Urine 7.5 (5.0-9.0)
[2022-11-23 09:50] LABS: SARS-CoV-2 NAA Rapid Test Not Detected (NotDetected)
[2022-11-23] MEDS ORDERED: Iopamidol-370 76% 500 ML 1 ML ONE (10:09)
[2022-11-23] MEDS ORDERED: Acetaminophen 325 MG TAB PO PRN (10:14)
[2022-11-23] MEDS ORDERED: Melatonin 3 MG TAB PO PRN (10:14)
[2022-11-23] MEDS ORDERED: HYDROcodone/Acetaminophen 5/325 mg Tablet PO PRN (10:14)
[2022-11-23] MEDS ORDERED: Ondansetron PF 4 MG/2 ML Vial IVP PRN (10:14)
[2022-11-23] MEDS ORDERED: Guaifenesin DM 100-10/5 ML UDCUP PO PRN (10:14)
[2022-11-23] MEDS ORDERED: Levofloxacin 750 mg/D5W 500 MG in Premix Bag 1 BAG IVPB SCH (10:15)
[2022-11-23 11:13] LABS: Troponin I Less than 0.010 ng/mL (< 0.028)
[2022-11-23] MEDS ORDERED: fentaNYL 50 mcg/hour Patch TD SCH (12:00)
[2022-11-23 12:10] VITALS: BMI 22.7
[2022-11-23] MEDS: Ipratropium/Albuterol 3 ML NEB NEB SCH ×2 (14:22→18:46)
[2022-11-23 14:45] LABS: Troponin I 0.014 ng/mL (< 0.028)
[2022-11-23] MEDS ORDERED: FLU VACC QS2022-23(65YR UP)/PF 240 MCG/0.7 ML SYRINGE IM ONE (15:00)
[2022-11-23] MEDS: Gabapentin 300 MG CAP PO SCH (20:02)
[2022-11-23] MEDS: Senokot S 8.6-50 MG TAB PO SCH (20:02)
[2022-11-24] MEDS: Ipratropium/Albuterol 3 ML NEB NEB SCH ×2 (00:15→06:27)
[2022-11-24 05:33] LABS: Anion Gap 13 mmol/L (10-20); BUN (Urea Nitrogen) 7 mg/dL (8.4-25.7); Calc. Creatinine Clearance 64 mL/min (70-130); Calcium 8.6 mg/dL (7.8-10.44); Carbon Dioxide 23 mmol/L (23-31); Chloride 100 mmol/L (98-107); Estimated GFR 87; Glucose 99 mg/dL (83-110); Potassium 3.7 mmol/L (3.5-5.1); Sodium 132 mmol/L (136-145)
[2022-11-24 06:28] LABS: Hemoglobin 8.1 g/dL (14.0-18.0); Mean Corpuscular Hemoglobin 39.4 pg (27.0-31.0); Mean Platelet Volume 8.3 fL (7.4-10.4); Platelet Count 92 10x3/uL (130-400); RBC Distribution Width 16.4 % (11.5-14.5); Red Blood Cell (RBC) Count 2.06 mill/uL (4.70-6.10); White Blood Cell (WBC) Count 23.6 10x3/uL (4.8-10.8)
[2022-11-24 06:29] LABS: Anisocytosis SLIGHT = 6-15 cells (100X) (0-5/hpf); Band 6 % (5-11); Eosinophils 1 % (0-10); Lymphocytes 4 % (21-51); MDiff Complete? YES; Macrocytosis MODERATE=16-30 cells (100X) (0-5/hpf); Monocytes 9 % (0-10); Myelocyte 1 % (0-0); Neutrophil 79 % (42-75); Ovalocytes MODERATE= 6-15 cells (100X) (0-1/hpf); Platelet Morphology Comment Appears Decreased
[2022-11-24 08:20] VITALS: BP 119/59; TEMP 98
[2022-11-24] MEDS ORDERED: PARoxetine 20 MG TAB PO SCH (09:00)
[2022-11-24] MEDS ORDERED: fentaNYL 50 mcg/hour Patch TD SCH (09:00)
[2022-11-24] MEDS ORDERED: Non-Formulary Item 1 EACH (Paroxetine Hcl [Paxil] 30 MG Tablet) PO SCH ×2 (09:00)
[2022-11-24] MEDS ORDERED: Amiodarone 200 MG TAB PO SCH (09:00)
[2022-11-24] MEDS ORDERED: Polyethylene Glycol 3350 17 GM Packet PO SCH (09:00)
[2022-11-24] MEDS: Senokot S 8.6-50 MG TAB PO SCH (09:31)
[2022-11-24] MEDS: Gabapentin 300 MG CAP PO SCH (09:31)
== END 2022-11-24 11:29 | disposition home or self-care (01) ==
LOC: ERS 06:46 → 2SW 09:33
PROVIDERS: ADMIT Internal Medicine; ATTEND Internal Medicine
DX: J18.9 Pneumonia, unspecified organism (principal); R07.81 Pleurodynia; I10 Essential (primary) hypertension; I48.19 Other persistent atrial fibrillation; C25.9 Malignant neoplasm of pancreas, unspecified; I25.10 Atherosclerotic heart disease of native coronary artery without angina pectoris; K21.9 Gastro-esophageal reflux disease without esophagitis; E78.5 Hyperlipidemia, unspecified; Z66 Do not resuscitate; Z79.899 Other long term (current) drug therapy; Z20.822 Contact with and (suspected) exposure to COVID-19
CPT/HCPCS: 0240U; 71275; 80048; 80053; 81003; 83880; 84484 ×2; 85025 ×2; 87040; 87070; 87086; 87205 ×2; 93005; 94640 ×3; 96372; 96374; 99285; G0378 ×3; J3370; 36415; J0692; J1650; J1956; J7620; Q9967

== ENCOUNTER 2022-11-25 07:46 | Outpatient (CLI) | payer MEDICARE, OTHER | END 2022-11-25 07:47 | disposition home or self-care (01) | LOC: BICCT 07:46 | PROVIDERS: ATTEND Internal Medicine Hematology & Oncology | DX: C25.2 Malignant neoplasm of tail of pancreas (principal) | CPT/HCPCS: 71260; 74177 ==

== ENCOUNTER 2022-11-28 09:51 | Inpatient (IN) | payer MEDICARE, OTHER ==
[2022-11-28 10:50] LABS: Hemoglobin 9.3 g/dL (14.0-18.0); Mean Corpuscular HGB CONC 32.6 g/dL (32.0-36.0); Mean Corpuscular Hemoglobin 37.9 pg (27.0-31.0); Platelet Count 257 10x3/uL (130-400); RBC Distribution Width 16.4 % (11.5-14.5); Red Blood Cell (RBC) Count 2.44 mill/uL (4.70-6.10); White Blood Cell (WBC) Count 33.6 10x3/uL (4.8-10.8)
[2022-11-28] MEDS ORDERED: Azithromycin 500 MG VIAL ONE (10:54)
[2022-11-28] MEDS ORDERED: Cefepime 2 GM VIAL ONE (10:54)
[2022-11-28 11:20] LABS: Anisocytosis SLIGHT = 6-15 cells (100X) (0-5/hpf); Band 1 % (5-11); Lymphocytes 3 % (21-51); MDiff Complete? YES; Monocytes 3 % (0-10); Neutrophil 93 % (42-75); Ovalocytes SLIGHT = 2-5 cells (100X) (0-1/hpf); Platelet Morphology Comment Appears Adequate; Polychromasia SLIGHT = 2-3 cells (100X) (0-2/hpf)
[2022-11-28 11:26] LABS: ALT (SGPT) 12 U/L (8-55); AST (SGOT) 19 U/L (5-34); Albumin 3.2 g/dL (3.4-4.8); Alkaline Phosphatase 164 U/L (40-110); Anion Gap 9 mmol/L (10-20); BUN (Urea Nitrogen) 8 mg/dL (8.4-25.7); Bilirubin, Total 0.4 mg/dL (0.2-1.2); Calc. Creatinine Clearance 0 mL/min (70-130); Calcium 8.5 mg/dL (7.8-10.44); Carbon Dioxide 26 mmol/L (23-31); Chloride 99 mmol/L (98-107); Estimated GFR 82; Globulin 2.6 g/dL (2.4-3.5); Glucose 229 mg/dL (83-110); Potassium 4.3 mmol/L (3.5-5.1); Protein, Total 5.8 g/dL (5.8-8.1); Sodium 130 mmol/L (136-145)
[2022-11-28] MEDS ORDERED: Senokot S 8.6-50 MG TAB PO PRN (12:25)
[2022-11-28] MEDS ORDERED: Ondansetron PF 4 MG/2 ML Vial IVP PRN (12:25)
[2022-11-28] MEDS ORDERED: Guaifenesin DM 100-10/5 ML UDCUP PO PRN (12:25)
[2022-11-28] MEDS ORDERED: Acetaminophen 325 MG TAB PO PRN (12:25)
[2022-11-28] MEDS ORDERED: Polyethylene Glycol 3350 17 GM Packet PO PRN (12:25)
[2022-11-28] MEDS: fentaNYL 50 mcg/hour Patch TD SCH (14:36)
[2022-11-28] MEDS: Sodium Chloride 0.9% 1,000 ML IV SCH (14:38)
[2022-11-28] MEDS: Gabapentin 300 MG CAP PO SCH ×2 (14:38→20:09)
[2022-11-28 15:31] VITALS: BMI 22.6
[2022-11-28 15:49] LABS: SARS-CoV-2 NAA Rapid Test Not Detected (NotDetected)
[2022-11-28] MEDS ORDERED: Vancomycin 1.5 GRAM/300 ML BAG 1.5 GM in Premix Bag 1 BAG IVPB SCH (19:30)
[2022-11-28] MEDS: Ipratropium/Albuterol 3 ML NEB NEB SCH (19:35)
[2022-11-28] MEDS: Cefepime 1 GM in Sodium Chloride 0.9% 100 ML IVPB SCH (20:08)
[2022-11-29] MEDS: Ipratropium/Albuterol 3 ML NEB NEB SCH ×4 (00:25→19:04)
[2022-11-29 05:35] LABS: #Eosinphils 0.3 thou/uL (0.0-0.7); #Lymphocytes 1.2 thou/uL (1.20-3.40); #Monocytes 1.2 thou/uL (0.11-0.59); #Neutrophils 14.4 thou/uL (1.40-6.50); %Basophils 0.2 % (0.0-1.0); %Eosinophils 1.7 % (0.0-10.0); %Monocytes 7.2 % (0.0-10.0); %Neutrophils 83.9 % (42.0-75.0); Mean Corpuscular HGB CONC 32.9 g/dL (32.0-36.0); Mean Corpuscular Hemoglobin 38.1 pg (27.0-31.0); Mean Platelet Volume 6.9 fL (7.4-10.4); Platelet Count 206 10x3/uL (130-400); RBC Distribution Width 16.1 % (11.5-14.5); Red Blood Cell (RBC) Count 2.11 mill/uL (4.70-6.10); White Blood Cell (WBC) Count 17.2 10x3/uL (4.8-10.8)
[2022-11-29 05:57] LABS: ALT (SGPT) 10 U/L (8-55); AST (SGOT) 13 U/L (5-34); Albumin 2.7 g/dL (3.4-4.8); Alkaline Phosphatase 97 U/L (40-110); Anion Gap 11 mmol/L (10-20); BUN (Urea Nitrogen) 10 mg/dL (8.4-25.7); Bilirubin, Total 0.4 mg/dL (0.2-1.2); Calc. Creatinine Clearance 72 mL/min (70-130); Calcium 8.2 mg/dL (7.8-10.44); Carbon Dioxide 23 mmol/L (23-31); Chloride 102 mmol/L (98-107); Estimated GFR 89; Globulin 2.3 g/dL (2.4-3.5); Glucose 96 mg/dL (83-110); Potassium 3.9 mmol/L (3.5-5.1); Sodium 132 mmol/L (136-145)
[2022-11-29] MEDS: PARoxetine 20 MG TAB PO SCH (09:52)
[2022-11-29] MEDS: Amiodarone 200 MG TAB PO SCH (09:52)
[2022-11-29] MEDS: Cefepime 1 GM in Sodium Chloride 0.9% 100 ML IVPB SCH ×2 (09:53→21:56)
[2022-11-29] MEDS: Gabapentin 300 MG CAP PO SCH ×3 (09:53→20:48)
[2022-11-29] MEDS: Sodium Chloride 0.9% 1,000 ML IV SCH ×2 (09:54→21:56)
[2022-11-29] MEDS: Azithromycin 500 MG in Sodium Chloride 0.9% 250 ML 250 ML IVPB SCH (12:04)
[2022-11-29] MEDS: Mometasone 200 MCG/Formoterol 5 MCG 120 PUFF INHALER INH SCH (19:05)
[2022-11-29] MEDS: Vancomycin 1 GM in Premix Bag 1 BAG IVPB SCH (20:43)
[2022-11-30] MEDS: Ipratropium/Albuterol 3 ML NEB NEB SCH ×4 (00:30→18:31)
[2022-11-30] MEDS: Cefepime 1 GM in Sodium Chloride 0.9% 100 ML IVPB SCH (08:37)
[2022-11-30] MEDS: Multivitamin W/ Minerals 1 TAB PO SCH (08:39)
[2022-11-30] MEDS: Gabapentin 300 MG CAP PO SCH ×3 (08:39→20:21)
[2022-11-30] MEDS: Amiodarone 200 MG TAB PO SCH (08:39)
[2022-11-30] MEDS: PARoxetine 20 MG TAB PO SCH (08:40)
[2022-11-30] MEDS ORDERED: Polyethylene Glycol 3350 17 GM Packet PO PRN (09:13)
[2022-11-30] MEDS ORDERED: Polyethylene Glycol 3350 17 GM Packet PO SCH (09:15)
[2022-11-30] MEDS: Mometasone 200 MCG/Formoterol 5 MCG 120 PUFF INHALER INH SCH ×2 (10:15→18:34)
[2022-11-30] MEDS: Tamsulosin HCl 0.4 MG CAP PO SCH (10:28)
[2022-11-30] MEDS: Azithromycin 500 MG in Sodium Chloride 0.9% 250 ML 250 ML IVPB SCH (11:14)
[2022-11-30] MEDS: Senokot S 8.6-50 MG TAB PO SCH (20:13)
[2022-11-30] MEDS: Fluticasone Propionate Nasal Spray 16 gm Bottle NASAL SCH (20:22)
[2022-11-30] MEDS: Cefepime 2 GM in Sodium Chloride 0.9% 100 ML IVPB SCH (20:35)
[2022-11-30] MEDS ORDERED: Melatonin 3 MG TAB PO SCH (21:00)
[2022-11-30] MEDS: Vancomycin 1 GM in Premix Bag 1 BAG IVPB SCH (21:26)
[2022-11-30] MEDS ORDERED: QUEtiapine 25 MG TAB PO SCH (22:30)
[2022-12-01] MEDS: Ipratropium/Albuterol 3 ML NEB NEB SCH ×4 (00:11→19:10)
[2022-12-01 05:32] LABS: #Eosinphils 0.3 thou/uL (0.0-0.7); #Lymphocytes 1.2 thou/uL (1.20-3.40); #Monocytes 1.1 thou/uL (0.11-0.59); #Neutrophils 9.3 thou/uL (1.40-6.50); %Basophils 0.2 % (0.0-1.0); %Eosinophils 2.5 % (0.0-10.0); %Lymphocytes 9.8 % (21.0-51.0); %Monocytes 9.6 % (0.0-10.0); %Neutrophils 77.9 % (42.0-75.0); Hemoglobin 7.6 g/dL (14.0-18.0); Mean Corpuscular HGB CONC 32.5 g/dL (32.0-36.0); Mean Platelet Volume 8.3 fL (7.4-10.4); Platelet Count 166 10x3/uL (130-400); RBC Distribution Width 15.9 % (11.5-14.5); Red Blood Cell (RBC) Count 2.01 mill/uL (4.70-6.10); White Blood Cell (WBC) Count 11.9 10x3/uL (4.8-10.8)
[2022-12-01 05:58] LABS: Anion Gap 15 mmol/L (10-20); BUN (Urea Nitrogen) 10 mg/dL (8.4-25.7); Calc. Creatinine Clearance 81 mL/min (70-130); Carbon Dioxide 18 mmol/L (23-31); Chloride 102 mmol/L (98-107); Estimated GFR 92; Glucose 118 mg/dL (83-110); Potassium 4.6 mmol/L (3.5-5.1); Sodium 130 mmol/L (136-145)
[2022-12-01] MEDS: Mometasone 200 MCG/Formoterol 5 MCG 120 PUFF INHALER INH SCH ×2 (07:09→19:13)
[2022-12-01] MEDS: Vancomycin HCl 750 MG in Sodium Chloride 0.9% 250 ML 250 ML IVPB SCH ×2 (08:25→20:15)
[2022-12-01] MEDS: Gabapentin 300 MG CAP PO SCH ×2 (08:37→15:23)
[2022-12-01] MEDS: Amiodarone 200 MG TAB PO SCH (08:38)
[2022-12-01] MEDS: Tamsulosin HCl 0.4 MG CAP PO SCH (08:38)
[2022-12-01] MEDS: Senokot S 8.6-50 MG TAB PO SCH ×2 (08:38→20:15)
[2022-12-01] MEDS: Multivitamin W/ Minerals 1 TAB PO SCH (08:38)
[2022-12-01] MEDS: PARoxetine 20 MG TAB PO SCH (08:38)
[2022-12-01] MEDS: Fluticasone Propionate Nasal Spray 16 gm Bottle NASAL SCH ×2 (08:40→20:15)
[2022-12-01] MEDS: Cefepime 2 GM in Sodium Chloride 0.9% 100 ML IVPB SCH ×2 (09:48→20:16)
[2022-12-01] MEDS: Azithromycin 500 MG in Sodium Chloride 0.9% 250 ML 250 ML IVPB SCH (12:19)
[2022-12-01] MEDS ORDERED: Magnevist 469MG/ML 20 ML VIAL ONE (12:41)
[2022-12-01] MEDS: fentaNYL 50 mcg/hour Patch TD SCH (15:22)
[2022-12-01] MEDS ORDERED: QUEtiapine 25 MG TAB PO SCH (21:00)
[2022-12-02] MEDS: Ipratropium/Albuterol 3 ML NEB NEB SCH ×5 (00:35→22:59)
[2022-12-02] MEDS: Mometasone 200 MCG/Formoterol 5 MCG 120 PUFF INHALER INH SCH ×2 (06:38→19:38)
[2022-12-02 07:09] LABS: Vancomycin, Trough 15.1 ug/mL
[2022-12-02] MEDS: Multivitamin W/ Minerals 1 TAB PO SCH (09:04)
[2022-12-02] MEDS: Vancomycin HCl 750 MG in Sodium Chloride 0.9% 250 ML 250 ML IVPB SCH ×2 (09:04→20:27)
[2022-12-02] MEDS: Fluticasone Propionate Nasal Spray 16 gm Bottle NASAL SCH ×2 (09:04→20:27)
[2022-12-02] MEDS: Amiodarone 200 MG TAB PO SCH (09:04)
[2022-12-02] MEDS: Senokot S 8.6-50 MG TAB PO SCH ×2 (09:04→20:27)
[2022-12-02] MEDS: Tamsulosin HCl 0.4 MG CAP PO SCH (09:04)
[2022-12-02] MEDS: HYDROcodone/Acetaminophen 5/325 mg Tablet PO PRN ×2 (10:17→21:13)
[2022-12-02] MEDS: Cefepime 2 GM in Sodium Chloride 0.9% 100 ML IVPB SCH ×2 (10:17→20:28)
[2022-12-02] MEDS: Azithromycin 500 MG in Sodium Chloride 0.9% 250 ML 250 ML IVPB SCH (11:00)
[2022-12-02] MEDS ORDERED: fentaNYL 50 mcg/hour Patch TD SCH (15:00)
[2022-12-02] MEDS: Melatonin 3 MG TAB PO SCH (20:27)
[2022-12-02] MEDS ORDERED: Morphine 2 MG/ML VIAL SLOW IVP SCH (22:00)
[2022-12-03 05:46] LABS: #Eosinphils 0.2 thou/uL (0.0-0.7); #Monocytes 1.1 thou/uL (0.11-0.59); #Neutrophils 7.3 thou/uL (1.40-6.50); %Basophils 0.3 % (0.0-1.0); %Eosinophils 1.8 % (0.0-10.0); %Lymphocytes 10.8 % (21.0-51.0); %Neutrophils 76.1 % (42.0-75.0); Hemoglobin 7.5 g/dL (14.0-18.0); Mean Corpuscular HGB CONC 33.5 g/dL (32.0-36.0); Mean Corpuscular Hemoglobin 38.2 pg (27.0-31.0); Mean Platelet Volume 6.7 fL (7.4-10.4); Platelet Count 279 10x3/uL (130-400); RBC Distribution Width 15.4 % (11.5-14.5); Red Blood Cell (RBC) Count 1.97 mill/uL (4.70-6.10); White Blood Cell (WBC) Count 9.5 10x3/uL (4.8-10.8)
[2022-12-03 06:04] LABS: Anion Gap 10 mmol/L (10-20); BUN (Urea Nitrogen) 7 mg/dL (8.4-25.7); Calc. Creatinine Clearance 87 mL/min (70-130); Calcium 8.4 mg/dL (7.8-10.44); Carbon Dioxide 26 mmol/L (23-31); Chloride 99 mmol/L (98-107); Estimated GFR 94; Glucose 100 mg/dL (83-110); Potassium 3.7 mmol/L (3.5-5.1); Sodium 131 mmol/L (136-145)
[2022-12-03] MEDS: Ipratropium/Albuterol 3 ML NEB NEB SCH ×3 (07:33→19:01)
[2022-12-03] MEDS: Mometasone 200 MCG/Formoterol 5 MCG 120 PUFF INHALER INH SCH ×2 (07:35→19:02)
[2022-12-03] MEDS: Tamsulosin HCl 0.4 MG CAP PO SCH (10:38)
[2022-12-03] MEDS: Multivitamin W/ Minerals 1 TAB PO SCH (10:38)
[2022-12-03] MEDS: Senokot S 8.6-50 MG TAB PO SCH ×2 (10:39→20:13)
[2022-12-03] MEDS: Amiodarone 200 MG TAB PO SCH (10:39)
[2022-12-03] MEDS: Fluticasone Propionate Nasal Spray 16 gm Bottle NASAL SCH ×2 (10:46→20:13)
[2022-12-03] MEDS: Cefepime 2 GM in Sodium Chloride 0.9% 100 ML IVPB SCH (10:54)
[2022-12-03] MEDS: Vancomycin HCl 750 MG in Sodium Chloride 0.9% 250 ML 250 ML IVPB SCH (10:54)
[2022-12-03] MEDS: Azithromycin 500 MG in Sodium Chloride 0.9% 250 ML 250 ML IVPB SCH (10:55)
[2022-12-03] MEDS: Melatonin 3 MG TAB PO SCH (20:13)
[2022-12-03] MEDS: Amoxicillin/Potassium Clav 875 MG TAB PO SCH (20:13)
[2022-12-04] MEDS: Ipratropium/Albuterol 3 ML NEB NEB SCH ×3 (00:30→12:49)
[2022-12-04] MEDS: Mometasone 200 MCG/Formoterol 5 MCG 120 PUFF INHALER INH SCH (07:50)
[2022-12-04] MEDS: Fluticasone Propionate Nasal Spray 16 gm Bottle NASAL SCH (09:02)
[2022-12-04] MEDS: Multivitamin W/ Minerals 1 TAB PO SCH (09:02)
[2022-12-04] MEDS: Tamsulosin HCl 0.4 MG CAP PO SCH (09:02)
[2022-12-04] MEDS: Amoxicillin/Potassium Clav 875 MG TAB PO SCH (09:02)
[2022-12-04] MEDS: Senokot S 8.6-50 MG TAB PO SCH (09:02)
[2022-12-04] MEDS: Amiodarone 200 MG TAB PO SCH (09:02)
[2022-12-04 14:42] VITALS: BP 138/66; TEMP 98.2
== END 2022-12-04 16:20 | disposition swing bed (61) | DRG 871 ==
LOC: ERS 09:51 → MSONC 12:11
PROVIDERS: ADMIT Family Medicine; ATTEND Family Medicine
DX: A41.9 Sepsis, unspecified organism (principal); J18.9 Pneumonia, unspecified organism; J96.01 Acute respiratory failure with hypoxia; J69.0 Pneumonitis due to inhalation of food and vomit; F05 Delirium due to known physiological condition; I48.92 Unspecified atrial flutter; C25.2 Malignant neoplasm of tail of pancreas; Z66 Do not resuscitate; Z20.822 Contact with and (suspected) exposure to COVID-19; I10 Essential (primary) hypertension; I48.0 Paroxysmal atrial fibrillation; K59.00 Constipation, unspecified; Z96.651 Presence of right artificial knee joint; K21.9 Gastro-esophageal reflux disease without esophagitis; E78.5 Hyperlipidemia, unspecified; R13.10 Dysphagia, unspecified; L89.152 Pressure ulcer of sacral region, stage 2; R65.20 Severe sepsis without septic shock; Y95 Nosocomial condition; R33.9 Retention of urine, unspecified; R44.1 Visual hallucinations; Z79.899 Other long term (current) drug therapy; Z98.890 Other specified postprocedural states; Z80.0 Family history of malignant neoplasm of digestive organs; Z87.01 Personal history of pneumonia (recurrent)
CPT/HCPCS: 36415; 70553; 71045; 71260; 74177; 74230; 80048; 80053; 80202; 82248; 82565; 83605; 83615; 83880; 84100; 84484; 84550; 85025; 86301; 87040; 87070; 87081; 87205; 93005; 93306; 94640; 96374; 96375; A9579; J0456; J0692; J1650; J2272; J3370; J3370-JW; J3490; J7050; J7620; U0002

== ENCOUNTER 2023-01-29 12:46 | Outpatient (CLI) | payer MEDICARE, OTHER ==
[~2023-01-29 12:46] MED LIST changes: +Iopamidol 370 76% 100 ML VIAL ONE; -Magnevist 469MG/ML 20 ML VIAL ONE
== END 2023-01-29 12:47 | disposition home or self-care (01) ==
LOC: BICCT 12:46
PROVIDERS: ATTEND Internal Medicine Hematology & Oncology
DX: C25.9 Malignant neoplasm of pancreas, unspecified (principal); K86.89 Other specified diseases of pancreas; K63.89 Other specified diseases of intestine; J90 Pleural effusion, not elsewhere classified
CPT/HCPCS: 74177; Q9967

== ENCOUNTER 2023-04-12 16:56 | Inpatient (IN) | payer MEDICARE, OTHER ==
[2023-04-12 21:57] VITALS: BMI 21.7
[2023-04-12] MEDS ORDERED: Acetaminophen 325 MG TAB PO PRN (21:59)
[2023-04-12] MEDS ORDERED: Ondansetron PF 4 MG/2 ML Vial IVP PRN (21:59)
[2023-04-12] MEDS ORDERED: Ipratropium/Albuterol 3 ML NEB EZPAP PRN (22:03)
[2023-04-12] MEDS ORDERED: Sodium Chloride 0.9% 1,000 ML IV SCH (23:30)
[2023-04-13] MEDS: Cefepime 2 GM in Sodium Chloride 0.9% 100 ML IVPB SCH ×2 (03:50→16:35)
[2023-04-13] MEDS ORDERED: Vancomycin 1 GM in Premix Bag 1 BAG IVPB SCH (05:00)
[2023-04-13 06:16] LABS: #Eosinphils 0.8 thou/uL (0.0-0.7); #Neutrophils 13.9 thou/uL (1.40-6.50); %Basophils 0.2 % (0.0-1.0); %Eosinophils 4.5 % (0.0-10.0); %Lymphocytes 4.5 % (21.0-51.0); %Monocytes 0.2 % (0.0-10.0); Hemoglobin 7.7 g/dL (14.0-18.0); Mean Corpuscular HGB CONC 33.8 g/dL (32.0-36.0); Mean Corpuscular Hemoglobin 36.8 pg (27.0-31.0); Mean Corpuscular Volume 109.1 fl (78.0-98.0); Mean Platelet Volume 10.1 fL (7.4-10.4); Platelet Count 139 10x3/uL (130-400); RBC Distribution Width 16.7 % (11.5-14.5); Red Blood Cell (RBC) Count 2.09 mill/uL (4.70-6.10); White Blood Cell (WBC) Count 16.8 10x3/uL (4.8-10.8)
[2023-04-13 06:39] LABS: Anion Gap 10 mmol/L (10-20); BUN (Urea Nitrogen) 17 mg/dL (8.4-25.7); Calc. Creatinine Clearance 65 mL/min (70-130); Calcium 8.2 mg/dL (7.8-10.44); Carbon Dioxide 22 mmol/L (23-31); Chloride 102 mmol/L (98-107); Estimated GFR 89; Glucose 97 mg/dL (83-110); Sodium 130 mmol/L (136-145)
[2023-04-13] MEDS ORDERED: Cefepime 2 GM in Sodium Chloride 0.9% 100 ML IVPB SCH (09:00)
[2023-04-13] MEDS ORDERED: Hyoscyamine SL 0.125 MG TAB SL PRN (17:31)
[2023-04-13] MEDS ORDERED: Polyethylene Glycol 3350 17 GM Packet PO PRN (17:31)
[2023-04-13] MEDS ORDERED: Albuterol 200 PUFF (6.7GM INHALER) INH PRN (17:48)
[2023-04-13] MEDS ORDERED: guaiFENesin/DM ER PO SCH (19:00)
[2023-04-13] MEDS: Mirtazapine 15 MG Soltab PO SCH (20:32)
[2023-04-13] MEDS: Gabapentin 300 MG CAP PO SCH (20:32)
[2023-04-13] MEDS: Benzonatate 100 MG CAP PO SCH (20:32)
[2023-04-14] MEDS ORDERED: Cefepime 1 GM in Sodium Chloride 0.9% 100 ML IVPB SCH (04:00)
[2023-04-14] MEDS: Cefepime 2 GM in Sodium Chloride 0.9% 100 ML IVPB SCH ×2 (04:31→15:31)
[2023-04-14 07:15] LABS: #Basophils 0.1 thou/uL (0.0-0.2); #Eosinphils 0.9 thou/uL (0.0-0.7); #Monocytes 0.1 thou/uL (0.11-0.59); %Basophils 0.3 % (0.0-1.0); %Eosinophils 5.1 % (0.0-10.0); %Lymphocytes 3.8 % (21.0-51.0); %Monocytes 0.8 % (0.0-10.0); %Neutrophils 55.4 % (42.0-75.0); Hemoglobin 7.4 g/dL (14.0-18.0); Mean Corpuscular HGB CONC 32.9 g/dL (32.0-36.0); Mean Corpuscular Hemoglobin 36.6 pg (27.0-31.0); Mean Corpuscular Volume 111.4 fl (78.0-98.0); Mean Platelet Volume 9.9 fL (7.4-10.4); Platelet Count 123 10x3/uL (130-400); RBC Distribution Width 16.6 % (11.5-14.5); Red Blood Cell (RBC) Count 2.02 mill/uL (4.70-6.10)
[2023-04-14 07:28] LABS: Manual Diff?? YES
[2023-04-14 07:41] LABS: Anion Gap 8 mmol/L (10-20); BUN (Urea Nitrogen) 15 mg/dL (8.4-25.7); Calc. Creatinine Clearance 67 mL/min (70-130); Calcium 8.4 mg/dL (7.8-10.44); Carbon Dioxide 24 mmol/L (23-31); Chloride 102 mmol/L (98-107); Estimated GFR 89; Glucose 102 mg/dL (83-110); Potassium 4.1 mmol/L (3.5-5.1); Sodium 130 mmol/L (136-145)
[2023-04-14] MEDS ORDERED: fentaNYL 50 mcg/hour Patch TD SCH ×2 (08:00→09:00)
[2023-04-14] MEDS: guaiFENesin/DM ER PO SCH ×2 (08:35→20:30)
[2023-04-14] MEDS: Saccharomyces boulardii 250 MG CAP PO SCH (08:35)
[2023-04-14] MEDS: Loratadine 10 MG TAB PO SCH (08:35)
[2023-04-14] MEDS: Benzonatate 100 MG CAP PO SCH ×3 (08:35→20:30)
[2023-04-14] MEDS: Docusate 100 MG CAP PO SCH (08:35)
[2023-04-14] MEDS: Gabapentin 300 MG CAP PO SCH ×3 (08:35→20:30)
[2023-04-14] MEDS: Aspirin 81 mg Enteric Coated Tablet PO SCH (08:35)
[2023-04-14] MEDS: PARoxetine 20 MG TAB PO SCH (08:35)
[2023-04-14] MEDS: Amiodarone 200 MG TAB PO SCH (08:35)
[2023-04-14 09:18] LABS: Band 8 % (5-11); Burr Cells SLIGHT = 2-5 cells HPF (0-1); CellaVision Operator ID LAB.GE; Eosinophils 6 % (0-10); Lymphocytes 2 % (21-51); Macrocytosis SLIGHT = 6-15 cells HPF (0-5); Metamyelocyte 2 % (0-0); Monocytes 2 % (0-10); Neutrophil 80 % (42-75); Nucleated RBC (Manual Ct) 1 % (0); Platelet Adequacy Comment Platelets Decreased; Polychromasia SLIGHT = 2-3 cells HPF (0-2); Total Cell Count 102
[2023-04-14] MEDS: Mirtazapine 15 MG Soltab PO SCH (20:30)
[2023-04-15] MEDS: Cefepime 2 GM in Sodium Chloride 0.9% 100 ML IVPB SCH (04:13)
[2023-04-15 06:12] LABS: #Basophils 0.1 thou/uL (0.0-0.2); #Eosinphils 0.6 thou/uL (0.0-0.7); #Monocytes 0.4 thou/uL (0.11-0.59); #Neutrophils 17.7 thou/uL (1.40-6.50); %Basophils 0.6 % (0.0-1.0); %Eosinophils 3.2 % (0.0-10.0); %Lymphocytes 4.9 % (21.0-51.0); %Monocytes 1.8 % (0.0-10.0); %Neutrophils 88.9 % (42.0-75.0); Hemoglobin 7.1 g/dL (14.0-18.0); Mean Corpuscular HGB CONC 32.3 g/dL (32.0-36.0); Mean Corpuscular Volume 111.7 fl (78.0-98.0); Mean Platelet Volume 10.4 fL (7.4-10.4); RBC Distribution Width 16.5 % (11.5-14.5); Red Blood Cell (RBC) Count 1.97 mill/uL (4.70-6.10); White Blood Cell (WBC) Count 19.8 10x3/uL (4.8-10.8)
[2023-04-15 06:13] LABS: Platelet Count 114 10x3/uL (130-400)
[2023-04-15 06:31] LABS: Anion Gap 7 mmol/L (10-20); BUN (Urea Nitrogen) 16 mg/dL (8.4-25.7); Calc. Creatinine Clearance 70 mL/min (70-130); Calcium 8.6 mg/dL (7.8-10.44); Carbon Dioxide 25 mmol/L (23-31); Chloride 102 mmol/L (98-107); Estimated GFR 91; Glucose 98 mg/dL (83-110); Potassium 4.1 mmol/L (3.5-5.1); Sodium 130 mmol/L (136-145)
[2023-04-15] MEDS: PARoxetine 20 MG TAB PO SCH (08:57)
[2023-04-15] MEDS: Docusate 100 MG CAP PO SCH (08:57)
[2023-04-15] MEDS: Benzonatate 100 MG CAP PO SCH (08:57)
[2023-04-15] MEDS: Saccharomyces boulardii 250 MG CAP PO SCH (08:57)
[2023-04-15] MEDS: Gabapentin 300 MG CAP PO SCH (08:57)
[2023-04-15] MEDS: Aspirin 81 mg Enteric Coated Tablet PO SCH (08:57)
[2023-04-15] MEDS: Loratadine 10 MG TAB PO SCH (08:57)
[2023-04-15] MEDS: Amiodarone 200 MG TAB PO SCH (08:58)
[2023-04-15] MEDS: guaiFENesin/DM ER PO SCH (08:58)
[2023-04-15 09:20] VITALS: BP 110/63; TEMP 97.7
[2023-04-15] MEDS ORDERED: Iopamidol 370 76% 100 ML VIAL ONE (09:22)
== END 2023-04-15 15:35 | disposition home or self-care (01) | DRG 177 ==
LOC: MSONC 16:56
PROVIDERS: ADMIT Internal Medicine; ATTEND Family Medicine
DX: J69.0 Pneumonitis due to inhalation of food and vomit (principal); J96.21 Acute and chronic respiratory failure with hypoxia; C25.9 Malignant neoplasm of pancreas, unspecified; E87.1 Hypo-osmolality and hyponatremia; I10 Essential (primary) hypertension; Z66 Do not resuscitate; E78.5 Hyperlipidemia, unspecified; M19.90 Unspecified osteoarthritis, unspecified site; K21.9 Gastro-esophageal reflux disease without esophagitis; I48.0 Paroxysmal atrial fibrillation; G89.4 Chronic pain syndrome; D63.8 Anemia in other chronic diseases classified elsewhere; F41.9 Anxiety disorder, unspecified; F32.A Depression, unspecified; Z96.651 Presence of right artificial knee joint; R13.12 Dysphagia, oropharyngeal phase; Z79.82 Long term (current) use of aspirin; Z79.899 Other long term (current) drug therapy; Z98.890 Other specified postprocedural states; Z86.73 Personal history of transient ischemic attack (TIA), and cerebral infarction without residual deficits; Z79.51 Long term (current) use of inhaled steroids
CPT/HCPCS: 36415; 36416; 71260; 74177; 80048; 85025; J0692; J1650; J3490; J7050; Q9967

== ENCOUNTER 2023-05-08 10:49 | Day surgery (SDC) | payer MEDICARE, OTHER ==
[2023-05-08] MEDS ORDERED: Acetaminophen 500 MG TAB PO SCH (11:30)
[2023-05-08] MEDS ORDERED: diphenhydrAMINE 25 MG CAP PO SCH (11:30)
== END 2023-05-08 11:55 | disposition short-term general hospital (02) ==
LOC: ONC/OP 10:49
PROVIDERS: ATTEND Internal Medicine Hematology & Oncology
DX: D64.9 Anemia, unspecified (principal); D69.6 Thrombocytopenia, unspecified
CPT/HCPCS: 36415; 36592; 80053

== ENCOUNTER 2023-05-08 12:00 | Inpatient (IN) | payer MEDICARE, OTHER ==
[~2023-05-08 12:00] MED LIST changes: -Iopamidol 370 76% 100 ML VIAL ONE; +Iopamidol-370 76% 500 ML MDV (1 ML CHARGE) ONE
[2023-05-08 12:49] LABS: Hemoglobin 6.8 g/dL (14.0-18.0); Mean Corpuscular HGB CONC 34.3 g/dL (32.0-36.0); Mean Corpuscular Volume 104.8 fl (78.0-98.0); Mean Platelet Volume 11.7 fL (7.4-10.4); RBC Distribution Width 17.3 % (11.5-14.5); Red Blood Cell (RBC) Count 1.89 mill/uL (4.70-6.10); White Blood Cell (WBC) Count 9.2 10x3/uL (4.8-10.8)
[2023-05-08 12:52] LABS: Delete Auto Diff?? YES; Manual Diff?? YES; Platelet Count 100 10x3/uL (130-400)
[2023-05-08 13:03] LABS: Anion Gap 12 mmol/L (10-20); BUN (Urea Nitrogen) 12 mg/dL (8.4-25.7); Calc. Creatinine Clearance 0 mL/min (70-130); Calcium 8.8 mg/dL (7.8-10.44); Carbon Dioxide 25 mmol/L (23-31); Chloride 97 mmol/L (98-107); Estimated GFR 87; Glucose 92 mg/dL (83-110); Potassium 3.9 mmol/L (3.5-5.1); Sodium 130 mmol/L (136-145)
[2023-05-08 13:20] LABS: ALT (SGPT) 68 U/L (8-55); AST (SGOT) 79 U/L (5-34); Albumin 3.1 g/dL (3.4-4.8); Alkaline Phosphatase 1201 U/L (40-110); Bilirubin, Direct 5.6 mg/dL (0.1-0.3); Bilirubin, Total 7.2 mg/dL (0.2-1.2); Protein, Total 6.1 g/dL (5.8-8.1)
[2023-05-08 13:25] LABS: Anisocytosis SLIGHT = 6-15 cells HPF (0-5); Band 15 % (5-11); CellaVision Operator ID LAB.MJL; Eosinophils 3 % (0-10); Lymphocytes 7 % (21-51); Macrocytosis SLIGHT = 6-15 cells HPF (0-5); Monocytes 5 % (0-10); Neutrophil 70 % (42-75); Platelet Adequacy Comment Platelets Decreased; Polychromasia SLIGHT = 2-3 cells HPF (0-2); Target Cells SLIGHT = 2-5 cells HPF (0-1); Tear Drops SLIGHT = 2-5 cells HPF (0-1); Total Cell Count 99
[2023-05-08] MEDS ORDERED: Ondansetron ODT 4 MG TAB PO PRN (16:49)
[2023-05-08] MEDS ORDERED: Acetaminophen 325 MG TAB PO PRN (16:49)
[2023-05-08] MEDS ORDERED: Ondansetron PF 4 MG/2 ML Vial IVP PRN (16:49)
[2023-05-08 18:29] VITALS: BMI 21.3
[2023-05-08] MEDS: Sodium Chloride 0.9% 1,000 ML IV SCH (18:29)
[2023-05-08] MEDS ORDERED: Acetaminophen 500 MG TAB PO SCH (19:00)
[2023-05-08] MEDS ORDERED: diphenhydrAMINE 25 MG CAP PO SCH (19:00)
[2023-05-08 20:48] LABS: Hemoglobin 8.6 g/dL (14.0-18.0)
[2023-05-09 05:39] LABS: #Basophils 0.1 thou/uL (0.0-0.2); #Eosinphils 0.8 thou/uL (0.0-0.7); #Monocytes 0.9 thou/uL (0.11-0.59); #Neutrophils 6.5 thou/uL (1.40-6.50); %Basophils 0.6 % (0.0-1.0); %Eosinophils 8.3 % (0.0-10.0); %Lymphocytes 12.1 % (21.0-51.0); Hemoglobin 8.5 g/dL (14.0-18.0); Mean Corpuscular HGB CONC 35.4 g/dL (32.0-36.0); Mean Corpuscular Volume 101.7 fl (78.0-98.0); Mean Platelet Volume 12.1 fL (7.4-10.4); Platelet Count 102 10x3/uL (130-400); RBC Distribution Width 18.3 % (11.5-14.5); Red Blood Cell (RBC) Count 2.36 mill/uL (4.70-6.10); White Blood Cell (WBC) Count 9.6 10x3/uL (4.8-10.8)
[2023-05-09 05:48] LABS: Manual Diff?? YES
[2023-05-09 06:02] LABS: ALT (SGPT) 57 U/L (8-55); AST (SGOT) 65 U/L (5-34); Albumin 2.7 g/dL (3.4-4.8); Alkaline Phosphatase 1095 U/L (40-110); Anion Gap 12 mmol/L (10-20); BUN (Urea Nitrogen) 11 mg/dL (8.4-25.7); Bilirubin, Total 7.4 mg/dL (0.2-1.2); Calc. Creatinine Clearance 60 mL/min (70-130); Calcium 8.6 mg/dL (7.8-10.44); Carbon Dioxide 24 mmol/L (23-31); Chloride 100 mmol/L (98-107); Estimated GFR 87; Globulin 2.9 g/dL (2.4-3.5); Glucose 79 mg/dL (83-110); Potassium 4.1 mmol/L (3.5-5.1); Protein, Total 5.6 g/dL (5.8-8.1); Sodium 132 mmol/L (136-145)
[2023-05-09 06:28] LABS: Band 11 % (5-11); Eosinophils 9 % (0-10); Hypochromia SLIGHT = 6-15 cells HPF (0-5); Large Platelets 3.9 % (0-5); Lymphocytes 4 % (21-51); Macrocytosis SLIGHT = 6-15 cells HPF (0-5); Metamyelocyte 1 % (0-0); Monocytes 6 % (0-10); Neutrophil 70 % (42-75); Ovalocytes SLIGHT = 2-5 cells HPF (0-1); Platelet Adequacy Comment Platelets Decreased; Target Cells SLIGHT = 2-5 cells HPF (0-1); Tear Drops SLIGHT = 2-5 cells HPF (0-1); Total Cell Count 103
[2023-05-09] MEDS ORDERED: Electrolyte Replacement Protocol 1 EACH FS SCH (07:45)
[2023-05-09] MEDS ORDERED: Piperacillin/Tazobactam 3.375 GM in Sodium Chloride 0.9% 100 ML IVPB SCH ×2 (08:00→12:00)
[2023-05-09] MEDS ORDERED: Electrolyte Replacement Protocol FS PRN (08:00)
[2023-05-09 08:49] LABS: Magnesium 1.9 mg/dL (1.6-2.6); Phosphorus 3.3 mg/dL (2.3-4.7)
[2023-05-09] MEDS ORDERED: Iopamidol 15 ML ONE (09:11)
[2023-05-09] MEDS ORDERED: Indomethacin 50 MG SUPP ONE (09:12)
[2023-05-09] MEDS ORDERED: Vasopressin 20 UNITS/ML VIAL ONE (09:16)
[2023-05-09] MEDS ORDERED: SUGAMMADEX SODIUM 200 MG/2 ML VIAL ONE (09:16)
[2023-05-09] MEDS ORDERED: fentaNYL 50 mcg/mL 1 mL Vial ONE (09:16)
[2023-05-09] MEDS ORDERED: PROPOFOL 200 MG/20 ML VIAL ONE (09:26)
[2023-05-09] MEDS ORDERED: Rocuronium Bromide 10 MG/ML (10ML VIAL) ONE (09:26)
[2023-05-09] MEDS ORDERED: Succinylcholine Chloride 100 MG/5 ML SYRINGE FS ONE (09:26)
[2023-05-09] MEDS ORDERED: ePHEDrine Sulfate 50 MG/10 ML VIAL ONE (09:26)
[2023-05-09] MEDS ORDERED: Dexamethasone 20 MG/5 ML VIAL ONE (09:26)
[2023-05-09] MEDS ORDERED: Ondansetron PF 4 MG/2 ML Vial ONE (09:26)
[2023-05-09] MEDS ORDERED: Lidocaine 1% PF 5 ML VIAL ONE (09:26)
[2023-05-09] MEDS ORDERED: Levofloxacin 500 mg/D5W 100 ml Premix Bag ONE (09:35)
[2023-05-09] MEDS ORDERED: Magnesium 2 GM/50 ML(in water) 2 GM in Premix Bag 1 BAG IVPB SCH (09:45)
[2023-05-09] MEDS ORDERED: Ondansetron HCl/PF 4 MG/2 ML Vial IVP PRN (09:59)
[2023-05-09] MEDS ORDERED: Promethazine HCl 25 MG/ML VIAL IM PRN (09:59)
[2023-05-09] MEDS ORDERED: Morphine Sulfate 2 MG/ML SYRINGE SLOW IVP PRN (09:59)
[2023-05-09 13:29] VITALS: BP 124/52; TEMP 97.8
[2023-05-09] MEDS: Sodium Chloride 0.9% 1,000 ML IV SCH (15:29)
== END 2023-05-09 17:14 | disposition hospice, home (50) | DRG 444 ==
LOC: ERS 12:00 → SURG A 16:53
PROVIDERS: ADMIT Hospitalist; ATTEND Internal Medicine
PROC: 30233N1 Transfusion of Nonautologous Red Blood Cells into Peripheral Vein, Percutaneous Approach (ICD-10-PCS; 2023-05-08)
PROC: 0FJB8ZZ Inspection of Hepatobiliary Duct, Via Natural or Artificial Opening Endoscopic (ICD-10-PCS; principal; 2023-05-09)
DX: K83.1 Obstruction of bile duct (principal); K55.059 Acute (reversible) ischemia of intestine, part and extent unspecified; C25.9 Malignant neoplasm of pancreas, unspecified; E87.1 Hypo-osmolality and hyponatremia; I82.890 Acute embolism and thrombosis of other specified veins; E44.0 Moderate protein-calorie malnutrition; E78.5 Hyperlipidemia, unspecified; M19.90 Unspecified osteoarthritis, unspecified site; F32.A Depression, unspecified; F41.9 Anxiety disorder, unspecified; I48.0 Paroxysmal atrial fibrillation; K21.9 Gastro-esophageal reflux disease without esophagitis; Z96.659 Presence of unspecified artificial knee joint; Z66 Do not resuscitate; D64.81 Anemia due to antineoplastic chemotherapy; D69.6 Thrombocytopenia, unspecified; I12.9 Hypertensive chronic kidney disease with stage 1 through stage 4 chronic kidney disease, or unspecified chronic kidney disease; N18.2 Chronic kidney disease, stage 2 (mild); E83.42 Hypomagnesemia; Z86.73 Personal history of transient ischemic attack (TIA), and cerebral infarction without residual deficits; Z98.890 Other specified postprocedural states; Z79.51 Long term (current) use of inhaled steroids; Z79.899 Other long term (current) drug therapy; Z79.82 Long term (current) use of aspirin; Z51.5 Encounter for palliative care; Z68.21 Body mass index [BMI] 21.0-21.9, adult
CPT/HCPCS: 36415; 36416; 36430; 36592; 74177; 76705; 80053; 83735; 84100; 85025; 86850; 86900; 86901; 94760; J1100; J1956; J2405; J2543; J2704; J3010; J3475; J3490; J7050; P9016; Q9967